=== PATIENT | female | born 1975 | race Caucasian/White ===

== ENCOUNTER 2016-05-24 08:53 | Emergency (ER) | payer MEDICARE, MEDICAID ==
--- NOTE | 2016-05-24 10:18 | ER Document Report ---
ED Psych Disorder / Suicide <GISELLE SHNE - Last Filed: 05/24/16 20:45> - General Mode of Arrival: Ambulatory Information source: Patient TRAVEL OUTSIDE OF THE [place] IN LAST 30 DAYS: No - HPI Patient complains to provider of: Other - Depression Onset: Other - see above Suicide Risk Factors: Depressed Associated symptoms: Other - see above <SELAM SMITH - Last Filed: 05/24/16 21:24> <MANUEL AGEE - Last Filed: 05/25/16 12:16> - General Chief Complaint: Psych Problem Stated Complaint: PSYCH EVAL Notes: 40 year old female presents to the ED complaining of depression and "weakness" to her upper torso. Patient becomes incredibly uncooperative when asked questions regarding the onset of these symptoms. Patient begins to lash out, screams, and verbally abuses the provider. Patient continually states that the providers foot is in her "personal space." A comprehensive HPI was unobtainable secondary to the patient's behavior. (SELAM SMITH) - Related Data Allergies/Adverse Reactions: acetaminophen [From Tylenol] Allergy (Severe, Verified 09/01/14 13:05) sick,sick,sick per patient banana [Banana] Allergy (Unknown, Verified 09/01/14 13:05) codeine [Codeine] Allergy (Unknown, Verified 09/01/14 13:05) pseudoephedrine [Pseudoephedrine] Allergy (Unknown, Verified 09/01/14 13:05) hotdogs Allergy (Uncoded 09/01/14 13:05) Past Medical History - General Information source: Patient - Social History Smoking Status: Unknown if Ever Smoked Family History: Reviewed & Not Pertinent Psychiatric Medical History: Reports: Hx Depression, Hx Schizophrenia Past Surgical History: Reports: Hx Section - Immunizations Hx Diphtheria, Pertussis, Tetanus Vaccination: Yes <SELAM SMITH - Last Filed: 05/24/16 21:24> Review of Systems <GISELLE SHEN - Last Filed: 05/24/16 20:45> - Review of Systems Constitutional: No symptoms reported EENT: No symptoms reported Cardiovascular: No symptoms reported Respiratory: No symptoms reported Gastrointestinal: No symptoms reported Genitourinary: No symptoms reported Female Genitourinary: No symptoms reported Musculoskeletal: No symptoms reported Skin: No symptoms reported Hematologic/Lymphatic: No symptoms reported Neurological/Psychological: See HPI, Depression, Weakness - bilateral upper torso <SELAM SMITH - Last Filed: 05/24/16 21:24> <MANUEL AGEE - Last Filed: 05/25/16 12:16> - Review of Systems Notes: A comprehensive ROS was unobtainable secondary to the patient's behavior. ( SELAM SMITH) Physical Exam - General General appearance: Alert, Other - verbally abusive, agitated, crying, cussing, and yelling In distress: None - HEENT Head: Normocephalic, Atraumatic Eyes: Normal Extraocular movements intact: Yes Pupils: PERRL - Respiratory Respiratory status: No respiratory distress - Cardiovascular Rhythm: Regular - Abdominal Inspection: Normal Distension: No distension Tenderness: Nontender - Back Back: Normal - Extremities General upper extremity: Normal inspection, Normal ROM General lower extremity: Normal inspection, Normal ROM - Neurological Neuro grossly intact: Yes Cognition: Normal Orientation: AAOx4 [place] Coma Scale Eye Opening: Spontaneous Estrada Coma Scale Verbal: Oriented [place] Coma Scale Motor: Obeys Commands Estrada Coma Scale Total: 15 Speech: Normal - Psychological Associated symptoms: Aggressive, Agitated, Tearful, Other - Unable to hold a train of thought. - Skin Skin Temperature: Warm Skin Moisture: Dry Skin Color: Normal <SMITHSELAM - Last Filed: 05/24/16 21:24> Course - Laboratory Result Diagrams: 05/24/16 09:50 05/24/16 09:50 <GISELLE SHEN - Last Filed: 05/24/16 20:45> - Laboratory Result Diagrams: 05/24/16 09:50 05/24/16 09:50 <SELAM SMITH - Last Filed: 05/24/16 21:24> - Laboratory Result Diagrams: 05/24/16 09:50 05/24/16 09:50 <MANUEL AGEE - Last Filed: 05/25/16 12:16> - Re-evaluation Re-evalutation: 05/24/16 20:43 I personally performed the services described in the documentation, reviewed and edited the documentation which was dictated to my scribe in my presence, and it accurately records my words and actions. She with an extensive psychiatric history yelling screaming, saying and verbally abusive towards staff to the point where we had to medicate her. Psychiatric evaluation history of schizophrenia. Gave her Geodon and Ativan which calmed her down for about 2-3 hours she woke up continued yelling screaming we called the psychiatrist financial sales representative about one hour ago 1944 and got recommendations for medication also gave her Ativan IM dose. She is positive for crack cocaine negative EKG changes. Will be admitted and see psychiatry in the morning. (GISELLE SHEN) - Vital Signs Vital signs: Temp Pulse Resp BP Pulse Ox 98.2 F 86 18 123/76 96 05/25/16 08:08 05/25/16 08:08 05/25/16 08:08 05/25/16 08:08 05/25/16 08:08 - Laboratory Laboratory results interpreted by me: 05/24/16 05/24/16 05/24/16 09:50 09:50 13:16 WBC 10.7 H Urine Protein 30 H Urine Ketones TRACE H Urine Nitrite POSITIVE H Ur Leukocyte Esterase MODERATE H Salicylates < 1.0 L Acetaminophen < 10 L - EKG Interpretation by Me Additional EKG results interpreted by me: 05/24/16 20:[address] segment elevation or depression (GISELLE SHEN) Critical Care Note - Critical Care Note Total time excluding time spent on procedures (mins): 45 <GISELLE SHEN - Last Filed: 05/24/16 20:45> Discharge <GISELLE SHEN - Last Filed: 05/24/16 20:45> <SELAM SMITH - Last Filed: 05/24/16 21:24> <MANUEL AGEE - Last Filed: 05/25/16 12:16> - Discharge Clinical Impression: Acute psychosis, Cocaine abuse UTI (urinary tract infection) Qualifiers: Urinary tract infection type: acute cystitis Hematuria presence: without hematuria Qualified Code(s): N30.00 - Acute cystitis without hematuria Condition: Stable Disposition: HOME, SELF-CARE Additional Instructions: Follow-up with the [facility]. Full course of your antibiotics for UTI. Do not use drugs. URINARY TRACT INFECTION: Your evaluation indicates that you have a urinary tract infection. This is due to germs growing in the bladder. This is a common problem. This infection usually responds quickly to antibiotics. Your antibiotic should be taken exactly as prescribed. Drink plenty of fluids -- three to four quarts a day. Occasionally, a bladder anesthetic will be prescribed to help stop the feeling of urgency until the antibiotic has a chance to clear the infection. This may cause your urine to be dark orange. Certain urine infections require a culture. If the doctor obtained a culture, the results will be back in two days. You should call to see if a change in treatment is needed. A repeat urinalysis after you finish treatment is often recommended. The physician will let you know if further testing is required. Call the doctor if you develop fever, chills, flank pain, inability to urinate, or blood in the urine. ANTIBIOTIC THERAPY: You have been given an antibiotic prescription. It's important that you take all the medication, unless instructed otherwise by your physician. Failure to complete the entire course can result in relapse of your condition. Common side effects of antibiotics include nausea, intestinal cramping, or diarrhea. Women may develop vaginal yeast infections, and babies can get yeast (thrush) in the mouth following the use of antibiotics. Contact your physician if you develop significant side effects from this medication. Allergy to this antibiotic can result in hives, wheezing, faintness, or itching. If symptoms of allergy occur, stop the medication and call the doctor. NITROFURANTOIN (MACRODANTIN, MACROBID): You have received a prescription for nitrofurantoin (Macrodantin). This antibiotic is used for urinary tract infections. Women who are or nursing should notify the physician before taking this medicine. If you have ever had a problem caused by this medication in the past, be sure the physician is aware of it. Common side effects of this medicine include nausea, vomiting, or decreased appetite. Notify your physician if these side effects become severe. Immediately stop this medicine and call the physician if you develop cough , shortness of breath, chest pain, weakness, jaundice (yellow color of the skin and whites of the eyes), or a skin rash. FOLLOW-UP CARE: If you have been referred to a physician for follow-up care, call the physician s office for an appointment as you were instructed or within the next two days. If you experience worsening or a significant change in your symptoms, notify the physician immediately or return to the Emergency Department at any time for re-evaluation. ACUTE ALCOHOL INTOXICATION and ALCOHOL ABUSE: Your evaluation revealed very high levels of alcohol. You can from drinking a large amount of alcohol rapidly! Further, there's the risk of falls , traffic accidents, and fights. A high portion (about 50 percent) of the serious injuries seen in hospital emergency rooms are caused by alcohol. Alcohol overdosage is usually due to an underlying emotional or psychiatric problem. You may benefit from counselling. If "binge" drinking is an ongoing problem for you, or if you drink ANY AMOUNT of alcohol EVERY day, you most likely have a tendency to alcoholism. You should avoid alcohol totally. We can refer you for treatment. Persons with alcohol problems are often also prone to other addictions -- you should discuss any use of medications or drugs with the doctor. You should be watched at home for the next several hours by someone who has not been drinking. Get extra fluids for the next 24 hours. Call the doctor if there is repeated vomiting, increasing headache, decreasing level of alertness, or any other worsening. CHRONIC ALCOHOLISM and ALCOHOL ABUSE: Your evaluation reveals evidence of chronic alcoholism, an addiction to alcohol. The tendency to alcoholism may be inherited. Chronic use of alcohol weakens muscles, causes fatty deposits in the liver , damages the stomach, makes you more prone to infections, and can cause defects in unborn children. In the long run, brain atrophy and cirrhosis of the liver result. You are also at greater risk for certain types of cancer, such as cancer of the mouth, throat, stomach, and liver. Counselling services are available to help you. In-hospital treatment programs often help. Support groups such as Alcoholics Anonymous can be very useful in beating this addiction. Your physician can make a referral for you. As alcoholics often are prone to other addictions, you should discuss your use of any other medications with the doctor. ALCOHOL WITHDRAWAL: Your symptoms are caused by alcohol withdrawal. After a period of frequent drinking, the brain and body are changed by the alcohol. When you quit or reduce your drinking, the nervous system becomes unstable. Withdrawal symptoms can start a few hours after your last drink, but sometimes don't begin until a couple of days later. Symptoms can include shakiness, sweating, insomnia, nausea , vomiting, fearfulness, hallucinations, and seizures. In addition to the acute effects of alcohol withdrawal, we often have to deal with the medical effects of alcoholism. These problems often include dehydration, stomach irritation, intestinal bleeding, low blood sugar, liver disease, and pancreas inflammation. Treatment for alcohol withdrawal includes mild sedatives, vitamins, and fluids. You need to be with someone who can help if symptoms become severe. Many patients can withdraw at home. Admission to the hospital or a detox facility may be necessary if withdrawal symptoms are severe and uncontrollable. Abstaining from alcohol is the only effective long-term treatment. If you start drinking again, you will not be able to control yourself after the first drink. Treatment programs are available. In addition, many alcoholics benefit from Alcoholics Anonymous or other support groups available through your counselor or episcopal tube machine operator helper. [employer]-ANON and ALA-TE[facility] are support groups for friends and family members of an alcoholic. Go to the emergency room if you develop persistent vomiting, severe abdominal pain, fever, shortness of breath, hallucinations, uncontrollable tremors, or seizures. COCAINE ABUSE: Cocaine causes many dangerous medical problems. Problems can occur even with "usual" amounts. Cocaine affects judgement, creating a sense of invulnerability. Cocaine users often make bad decisions that seem "great" at the time. Most cocaine users eventually will be hurt by bad job performance, damaged personal relations, crime, and unsafe sexual practices. Toxic effects of cocaine can include seizures, hallucinations, delusions, high blood pressure, heart damage, or sudden . There's always the risk of a "bad batch." But heart attacks, brain hemorrhages, or cardiac arrest can occur unpredictably even with "normal" use. Injection of cocaine is risky for abscesses, endocarditis (heart infection) , pneumonia, and AIDS. Withdrawal from cocaine often causes anxiety and drug cravings. Some users become paranoid and psychotic. Many treatment programs are available, but you must make the decision to quit. Medication can be prescribed to control the symptoms of cocaine toxicity (beta blockers or benzodiazepines). Withdrawal symptoms may require tranquilizers. NARCOTIC / OPIOD ABUSE: Narcotics and opiods are pain-relieving drugs that are often abused. They are addicting. Narcotics cause euphoria, but it often takes increasing amounts to "feel good" and avoid withdrawal symptoms. Overdose of narcotics causes small pupils, coma, and decreased breathing. It's a common cause of . Purity of street narcotics is unpredictable. Injection of narcotics is risky for abscesses, endocarditis (heart infection), pneumonia, and AIDS. Withdrawal from narcotics causes goose bumps, watery mouth, sweating, nasal congestion, muscle aches, abdominal cramps, vomiting, and diarrhea. There 's often restlessness and confusion. Treatment programs are available, but you must make the decision to quit. Medication (such as clonidine) can be prescribed to control the symptoms of withdrawal. AMPHETAMINE / METHAMPHETAMINE ABUSE: Amphetamines are addicting stimulants. Amphetamines overstimulate the nervous system and give a false feeling of power and mastery. These drugs may be obtained as prescription pills for weight loss, narcolepsy, or attention- deficit disorder. More often they're bought as an illegal street drug, methamphetamine (crank, crystal, speed). Using amphetamines repeatedly can lead to serious medical problems including malnutrition, severe depression, and paranoia. It can take increasing amounts to feel good. Eventually, there will be a "burn out." When you go off amphetamines there is a period of depression that may last for weeks or even months. High doses of amphetamines can cause seizures, confusion, hallucinations, delusions, high blood pressure, muscle damage, heart damage, or sudden . Many times these deadly complications occur even with "normal" doses. Injection of amphetamines is risky for developing abscesses, endocarditis ( heart infection), pneumonia, and AIDS. Withdrawal from amphetamines often causes anxiety, depression, and drug cravings. Some users become paranoid and psychotic. There may be cramps, nausea , and vomiting. Many treatment programs are available, but you must make the decision to quit. Medication can be prescribed to control the symptoms of amphetamine toxicity (beta blockers or benzodiazepines). Withdrawal symptoms may require tranquilizers. OVERDOSE / INGESTION: You have taken more medication than you should have. After your evaluation and care, it is felt that your overdose is not likely to be harmful or of any significant consequences to you and you are being discharged. In the future, you should be careful not to take more medications than what is prescribed for you. Although your overdose does not seem to be of any danger to you at this time, if you develop any unusual or unexpected symptoms after your discharge, you should return to the Emergency Department immediately for re-evaluation. INSTRUCTIONS FOR HOME CARE FOLLOWING DRUG OVERDOSAGE: The doctor feels it's safe for you to go home. You will need to be observed. If charcoal and a laxative was given to you, expect some loose black stools soon. Take no medications unless approved by a physician, including alcohol. If drowsy, lie on your stomach or side for sleeping to avoid aspiration if vomiting occurs. Take only liquids by mouth until there is no more nausea. FOR THE OBSERVER: Observe the patient for the next 24 hours and call or go to the hospital if any of the following are noted: prolonged or repeated vomiting, difficulty in arousing, convulsions (seizures or fits), fever, persistent cough, breathing that is too slow or too rapid, or confused or bizarre behavior. If a counselling visit has been arranged, make sure the patient attends. Call the physician or poison control if you have questions. FOLLOW-UP CARE: If you have been referred to a physician for follow-up care, call the physician s office for an appointment as you were instructed or within the next two days. If you experience worsening or a significant change in your symptoms, notify the physician immediately or return to the Emergency Department at any time for re-evaluation. Prescriptions: Benztropine Mesylate [Cogentin 1 mg Tablet] 1 tab PO QHS #7 tab Olanzapine [Zyprexa 5 mg Tablet] 5 mg PO QHS #7 tablet Divalproex Sodium [Depakote ER 500 mg Tab.sr] 500 mg PO Q12 #14 tab.sr.24h Nitrofurantoin/Nitrofuran Mac [Macrobid 100 mg Capsule] 1 tab PO BID #10 capsule Scribe Documentation - Scribe Written by Zhao:: Zhao Henriquez, 05/24/2016 1332 acting as scribe for :: Cruz <SELAM SMITH - Last Filed: 05/24/16 21:24>
[2016-05-24] MEDS ORDERED: LORAZEPAM INJ 2 MG/1 ML VIAL ONE ×2 (10:19→20:00)
[2016-05-24 10:22] LABS: ABSOLUTE BASOPHILS # (AUTO) 0.1 10^3/uL (0.0-0.2); ABSOLUTE EOSINOPHILS # (AUTO) 0.4 10^3/uL (0.0-0.6); ABSOLUTE LYMPHOCYTES (AUTO) 1.8 10^3/uL (0.5-4.7); ABSOLUTE MONOCYTES (AUTO) 0.9 10^3/uL (0.1-1.4); ABSOLUTE NEUT (AUTO) 7.5 10^3/uL (1.7-8.2); BASOPHILS % (AUTO) 0.5 % (0-2); EOSINOPHILS % (AUTO) 3.9 % (0-6); HEMATOCRIT 43.2 % (36.0-47.0); HEMOGLOBIN 14.6 g/dL (12.0-15.5); HGB HCT DIFFERENCE 0.6; LYMPHOCYTES % (AUTO) 17.1 % (13-45); MEAN CORPUSCULAR HEMOGLOBIN 30.1 pg (27.0-33.4); MEAN CORPUSCULAR HGB CONC 33.8 g/dL (32.0-36.0); MEAN CORPUSCULAR VOLUME 89 fl (80-97); MONOCYTES % (AUTO) 8.6 % (3-13); RED BLOOD COUNT 4.85 10^6/uL (3.72-5.28); RED CELL DISTRIBUTION WIDTH 12.9 % (11.5-14.0); SEGMENTED NEUTROPHILS % (AUTO) 69.9 % (42-78); WHITE BLOOD COUNT 10.7 10^3/uL (4.0-10.5)
[2016-05-24 10:33] LABS: BLOOD UREA NITROGEN 16 mg/dL (7-20); CREATININE RESULT 0.83 mg/dL (0.52-1.25); GLUCOSE 104 mg/dL (75-110)
[2016-05-24 10:34] LABS: ALANINE AMINOTRANSFERASE 25 U/L (9-52); ALBUMIN 4.3 g/dL (3.5-5.0); ALCOHOL < 10 mg/dL (NONE DETECTED); ALKALINE PHOSPHATASE 72 U/L (38-126); ANION GAP 12 (5-19); ASPARTATE AMINO TRANSFERASE 20 U/L (14-36); BILIRUBIN,TOTAL 0.7 mg/dL (0.2-1.3); CARBON DIOXIDE 27 mmol/L (22-30); CHLORIDE 104 mmol/L (98-107); POTASSIUM 4.6 mmol/L (3.6-5.0); SODIUM 142.9 mmol/L (137-145)
[2016-05-24] MEDS ORDERED: ZIPRASIDONE MESYLATE INJ/PF 20 MG SDV IM ONE (11:00)
[2016-05-24 13:50] LABS: APPEARANCE,URINE CLOUDY; BILIRUBIN,URINE NEGATIVE (NEGATIVE); GLUCOSE, URINE NEGATIVE (NEGATIVE); KETONES,URINE TRACE mg/dL (NEGATIVE); LEUKOCYTE ESTERASE,URINE MODERATE (NEGATIVE); NITRITE,URINE POSITIVE (NEGATIVE); PROTEIN,URINE 30 mg/dL (NEGATIVE); UROBILINOGEN,URINE NEGATIVE mg/dL (<2.0)
[2016-05-24 14:02] LABS: URINE BARBITURATES SCREEN NEGATIVE; URINE METHADONE SCREEN NEGATIVE; URINE OPIATES LOW NEGATIVE; URINE PHENCYCLIDINE SCREEN NEGATIVE
[2016-05-24] MEDS ORDERED: ONDANSETRON 4 MG TAB.RAPDIS PO ONE (16:34)
[2016-05-24] MEDS ORDERED: NITROFURANTOIN MONOHYD/M-CRYST 100 MG CAPSULE PO ONE (16:35)
[2016-05-24] MEDS ORDERED: LORAZEPAM INJ 2 MG/1 ML VIAL IM ONE (19:58)
[2016-05-24] MEDS ORDERED: BUSPIRONE HCL 10 MG TABLET PO ONE (20:25)
[2016-05-24] MEDS ORDERED: OLANZAPINE 5 MG TABLET PO PRN (20:26)
[2016-05-24] MEDS ORDERED: OLANZAPINE 5 MG TABLET PO SCH (22:00)
[2016-05-24] MEDS ORDERED: BENZTROPINE MESYLATE 1 MG TABLET PO SCH (22:00)
--- NOTE | 2016-05-25 07:21 | PSYCHOLOGICAL NOTE ---
Psych Note - Psych Note Psych Note: Patient presented to [facility] ED with complaint depression and needing a psych evaluation. Patient refused assessment and vital signs with EMS. Upon arrival, patient is tearful and states "I need to go to a 30 [address] [facility] place". Patient is unable to engage in evaluation at this time because she is sleeping. Patient received medication to calm her. 1430 Patient states she is depressed and needs an evaluation because her stomach hurts. Patient is tearfully and yelling because of the pain. Patient states that she needs help with her stomach and that she has been nauseas for 3 days. Patient states she is not suicidal or homicidal she is depressed and in pain. Patient repeated asks for medication to assist with her pain and nausea. Patient is difficult to engage as she just yells and says everyone is being mean to her. She does not answer direct questions easily and quickly reverts to her alleged pain. Patient was alert and oriented. Mood was irritable with tearful affect. She denied SI/HI. She did not appear to be responding to internal stimuli. Thought processes were organized. Thought content is focused on patient's reported pain. Conversational speech was slow in rate and yelling. Clinician asked when the last time the patient used cocaine and she stated she does not use cocaine. When clinician asked when the last time she used crack, she stated she used last weekend. Patient then had to leave the room to "throw up" and then make a call. Patient gave verbal consent to contact her child's father, Mayur Rinaldi ). She is not taking her medication. He continued to disclose that she has been taking off ability but does not know why. He states she is much better when she is on that. He continued to disclose that when she is on her medication, you can't even tell she has schizophrenia. 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 She denied SI/HI and does not appear to be in a psychosis. She is not responding to internal stimuli, can follow commands with minor direction, and can follow conversation. It is unclear at this time that patient's chief complaint, patient is unwilling or unable to verbalize needs other then she is depressed and in physical pain. Patient is yelling for medication and verbally abusive to staff. Patient's behavior would support collateral's concerns that she has not been taking her medication; however, it is believed by this clinician that the patient is behavioral and can control her presentation. Patient is recommended for overnight observation to assist with medications and then follow up with her outpatient provider in the morning. Dr. Restrepo was consulted on the care and management of this patient. Attending physician is in agreement with recommendations and disposition.
--- NOTE | 2016-05-25 09:34 | ER Document Report ---
Doctor's Note Notes: 05/25/16 09:30 Patient seen and evaluated at the bedside. Medically stable. She took her psychiatric medications yesterday. Evaluated today with no active signs of withdrawal. No other complaints at this time. Awaiting psych recs. Most likely discharge today. 05/25/16 13:15 Psych recommends discharge and outpatient follow-up at [facility]. Patient is not suicidal or homicidal and is not actively psychotic. IVC rescinded. Given strict return precautions. Also counseled on drug abuse.
--- NOTE | 2016-05-25 09:40 | PSYCHOLOGICAL NOTE ---
Psych Note - Psych Note Psych Note: Patient presented to [facility] ED with complaint depression and needing a psych evaluation. Patient refused assessment and vital signs with EMS. Upon arrival, patient is tearful and states "I need to go to a [address] Patient disclosed that she thinks her stomach has been hurting because of her UTI. She continued to disclose that she does have outpatient services through [facility] and should be having an appointment soon. She's disclosed that her medications were changed and believes they were not working. Patient is alert and orientated to person place time and circumstance. Patient' s mood is euthymic with congruent affect. Patient denies suicidal and homicidal ideation. patient denies auditory and visual hallucinations; no delusions are noted. Thought process is logical organized and linear. Conversational speech was soft but still within normal rate tone and prosody. Eye contact was well maintained. Intellectual abilities appear to be within average range. Attention and concentration are good. Insight, judgment, impulse control are fair. 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 Patient denies suicidal/homicidal ideation. Patient's presentation has greatly improved with compliance and calm behavior. Patient is recommended to follow-up with outpatient services through home mental health provider [facility]. Dr. Restrepo was consulted on the care and management of this patient. Attending physician is in agreement with recommendations and disposition.
[2016-05-25] MEDS ORDERED: DIVALPROEX SODIUM 500 MG TAB.SR.24H PO SCH (10:00)
--- NOTE | 2016-05-25 11:15 | EKG REPORT ---
SEVERITY:- ABNORMAL ECG - SINUS RHYTHM RBBB AND LAFB : Confirmed by: Desire To 25-May-2016 11:14:16
[2016-05-25 12:29] VITALS: BP 118/76
== END 2016-05-25 12:31 | disposition home or self-care (01) ==
LOC: ER 08:53
DX: F20.9 Schizophrenia, unspecified (principal); F14.10 Cocaine abuse, uncomplicated; F32.9 Major depressive disorder, single episode, unspecified; N30.00 Acute cystitis without hematuria; R53.1 Weakness; Z88.8 Allergy status to other drugs, medicaments and biological substances; Z91.018 Allergy to other foods
CPT/HCPCS: 93005; 99291; 96372; 96374; 36415; 87086; 80307 ×4; 85025; 87088; 80053; 81001; 87186; 93010; A9270 ×5; J2060; J3486; S0119

== ENCOUNTER 2016-06-18 15:27 | Emergency (ER) | payer MEDICARE ==
[2016-06-18] MEDS ORDERED: ASPIRIN 81 MG TABLET, CHEWABLE ONE (16:08)
[2016-06-18] MEDS ORDERED: OLANZAPINE INJ/PF 10 MG SDV IM ONE (16:34)
[2016-06-18] MEDS ORDERED: DIVALPROEX SODIUM 500 MG TAB.SR.24H PO ONE (16:35)
[2016-06-18] MEDS ORDERED: ARIPIPRAZOLE 5 MG TABLET PO ONE (16:35)
[2016-06-18] MEDS ORDERED: BENZTROPINE MESYLATE 1 MG TABLET PO ONE (16:35)
[2016-06-18 16:41] LABS: ABSOLUTE EOSINOPHILS # (AUTO) 0.4 10^3/uL (0.0-0.6); ABSOLUTE LYMPHOCYTES (AUTO) 2.3 10^3/uL (0.5-4.7); ABSOLUTE MONOCYTES (AUTO) 0.8 10^3/uL (0.1-1.4); ABSOLUTE NEUT (AUTO) 6.1 10^3/uL (1.7-8.2); BASOPHILS % (AUTO) 0.3 % (0-2); HEMATOCRIT 42.4 % (36.0-47.0); HEMOGLOBIN 14.4 g/dL (12.0-15.5); HGB HCT DIFFERENCE 0.8; LYMPHOCYTES % (AUTO) 24.1 % (13-45); MEAN CORPUSCULAR HEMOGLOBIN 30.1 pg (27.0-33.4); MEAN CORPUSCULAR HGB CONC 33.9 g/dL (32.0-36.0); MEAN CORPUSCULAR VOLUME 89 fl (80-97); MONOCYTES % (AUTO) 8.4 % (3-13); RED BLOOD COUNT 4.78 10^6/uL (3.72-5.28); RED CELL DISTRIBUTION WIDTH 12.9 % (11.5-14.0); SEGMENTED NEUTROPHILS % (AUTO) 63.2 % (42-78); WHITE BLOOD COUNT 9.6 10^3/uL (4.0-10.5)
[2016-06-18 16:58] LABS: ALANINE AMINOTRANSFERASE 26 U/L (9-52); ALBUMIN 4.3 g/dL (3.5-5.0); ALKALINE PHOSPHATASE 72 U/L (38-126); ANION GAP 14 (5-19); ASPARTATE AMINO TRANSFERASE 17 U/L (14-36); BILIRUBIN,DIRECT 0.3 mg/dL (0.0-0.4); BILIRUBIN,TOTAL 0.8 mg/dL (0.2-1.3); BLOOD UREA NITROGEN 19 mg/dL (7-20); CALCIUM 9.7 mg/dL (8.4-10.2); CARBON DIOXIDE 27 mmol/L (22-30); CHLORIDE 106 mmol/L (98-107); CREATINE KINASE 69 U/L (30-135); CREATININE RESULT 1.16 mg/dL (0.52-1.25); GLUCOSE 119 mg/dL (75-110); POTASSIUM 4.7 mmol/L (3.6-5.0); SODIUM 146.5 mmol/L (137-145); TOTAL PROTEIN 7.7 g/dL (6.3-8.2)
[2016-06-18 17:10] LABS: CREATINE KINASE MB 0.29 ng/mL (<4.55)
[2016-06-18 17:11] LABS: TROPONIN I < 0.012 ng/mL
--- NOTE | 2016-06-18 17:35 | ER Document Report ---
ED Psych Disorder / Suicide - General Chief Complaint: Psych Problem Stated Complaint: PSYCH EVAL+substance abuse, hx of Information source: Patient, [facility] Records Cannot obtain history due to: Uncooperative TRAVEL OUTSIDE OF THE [place] IN LAST 30 DAYS: No - HPI Patient complains to provider of: Agitated Onset: Just prior to arrival Onset was: Sudden Suicide Risk Factors: Bipolar, Depressed. No: Other mental health dx. - Borderline Personality Traits Situational problems related to: Other Normal mood: No Associated symptoms: Anxious, Irritable, Labile, Restlessness, Uncooperative, Other - excessively crying, but stops on command Similar symptoms previously: Yes Recently seen / treated by doctor: No - patient states she has not been on her psychiatric medications Notes: Patient presents to [facility] ED via a friend/family member and states she needs assistance managing her depression and psychiatric needs. Patient does have a history presenting to this department and is reportedly diagnosed with Schizophrenia and Cocaine Use Disorder. I attempted to evaluate this patient at which time I entered the room and she was laying on her bed moaning and crying. Patient states she is having chest pains. This clinician talked with the nurse vitals and EKG were all normal no reported concerns. Encourage patient to take a deep breath and set up. Patient repeatedly stated she couldn' t breathe and that she needed help because of her chest pains. Patient again encouraged to sit up and take a deep breath; however, patient stopped stared at this clinician and stated "shut up you are not the boss of me." Redirected patient that she was able to calm herself down enough to make that statement and appears as though she can control her behavioral presentation. Patient continued to per rate this clinician, called me a "snob" and told me to get out of her room. A careful review of patient's medical record indicates dating back to the year 2012 similar such behavioral presentations, e.g. yelling, cursing, crying but stopping on command. Patient did not mention suicidal ideations upon her arrival. Patient does not appear to be responding to internal stimuli. Patient is alert and oriented. Mood is irritable and labile with congruent affect. Patient denied suicidal/homicidal ideations during initial evaluation by nursing and M.D. Patient does not appear to be responding to internal stimuli nor is it documented within her medical history. Thought processes were guarded and goal oriented towards remaining in the ED, as evidenced by refusing to engage in conversation. Conversational speech was labile for prosody. Intellectual abilities were estimated within average range. Attention and focus were fair. Insight, judgment, impulse control were poor. 292.9 (F14.99) Unspecified Cocaine Related Disorder Schizophrenia by History R/O 295.70 (F25.0) Schizoaffective Disorder, Bipolar Type Impression/Plan: Patient is considered psychiatrically cleared for discharge. Patient presents with a significant behavioral component considered cured at medications and/or remaining in the ER. Patient was uncooperative and did not engage in conversation; however, does not meet criteria for involuntary commitment as she denied SI/HI upon arrival. Patient has a rather lengthy history of behavioral outbursts and presentations and this department to also include substance abuse (cocaine). Patient is recommended to follow-up with outpatient services through home mental health provider [facility]. Dr. Restrepo was consulted on the care and management of this patient. - Related Data Allergies/Adverse Reactions: acetaminophen [From Tylenol] Allergy (Severe, Verified 09/01/14 13:05) sick,sick,sick per patient banana [Banana] Allergy (Unknown, Verified 09/01/14 13:05) codeine [Codeine] Allergy (Unknown, Verified 09/01/14 13:05) pseudoephedrine [Pseudoephedrine] Allergy (Unknown, Verified 09/01/14 13:05) hotdogs Allergy (Uncoded 09/01/14 13:05) Past Medical History - General Information source: Patient - Social History Smoking Status: Current Every Day Smoker Family History: Reviewed & Not Pertinent Psychiatric Medical History: Reports: Hx Depression, Hx Schizophrenia Past Surgical History: Reports: Hx Section - Immunizations Hx Diphtheria, Pertussis, Tetanus Vaccination: Yes Course - Laboratory Result Diagrams: 06/18/16 16:25 06/18/16 16:25 Laboratory results interpreted by me: 06/18/16 16:25 Sodium 146.5 H Est GFR (Non-Af Amer) 52 L Glucose 119 H Discharge - Discharge Condition: Good Disposition: HOME, SELF-CARE Instructions: Schizophrenia ([facility]), Cocaine Abuse ([facility]) Additional Instructions: Please follow with her psychiatric provider to pursue continued medication management. Please consider engaging in outpatient therapy to assist you in managing her stressors. He had been provided with community resources to include contact information for mobile crisis. Those numbers are [phone] or . These mobile crisis team's are available to you .
[2016-06-18 17:44] VITALS: BP 129/75
[2016-06-18 18:14] LABS: APPEARANCE,URINE TURBID; BILIRUBIN,URINE NEGATIVE (NEGATIVE); GLUCOSE, URINE NEGATIVE (NEGATIVE); KETONES,URINE TRACE mg/dL (NEGATIVE); LEUKOCYTE ESTERASE,URINE NEGATIVE (NEGATIVE); NITRITE,URINE NEGATIVE (NEGATIVE); PROTEIN,URINE 30 mg/dL (NEGATIVE); URINE SPECIFIC GRAVITY 1.029; UROBILINOGEN,URINE NEGATIVE mg/dL (<2.0)
[2016-06-18 18:29] LABS: URINE BARBITURATES SCREEN NEGATIVE; URINE METHADONE SCREEN NEGATIVE; URINE OPIATES LOW NEGATIVE; URINE PHENCYCLIDINE SCREEN NEGATIVE
--- NOTE | 2016-06-18 19:21 | ER Document Report ---
ED General - General Chief Complaint: Psych Problem Stated Complaint: PSYCH EVAL Time seen by provider: 19:13 Mode of Arrival: Ambulatory Information source: Patient Notes: 40-year-old female with a history of schizophrenia, presents to the emergency room upset that she ran out of her medicines. Patient also has been having some sharp chest pain she's been concerned about that. TRAVEL OUTSIDE OF THE [place] IN LAST 30 DAYS: No - HPI Onset: Last week Onset/Duration: Gradual Quality of pain: Sharp Severity: Moderate Pain Level: 2 Associated symptoms: denies: Nonproductive cough, Productive cough, Fever, Shortness of breath Exacerbated by: Movement Relieved by: Remaining still Similar symptoms previously: No Recently seen / treated by doctor: No - Related Data Allergies/Adverse Reactions: acetaminophen [From Tylenol] Allergy (Severe, Verified 09/01/14 13:05) sick,sick,sick per patient banana [Banana] Allergy (Unknown, Verified 09/01/14 13:05) codeine [Codeine] Allergy (Unknown, Verified 09/01/14 13:05) pseudoephedrine [Pseudoephedrine] Allergy (Unknown, Verified 09/01/14 13:05) hotdogs Allergy (Uncoded 09/01/14 13:05) Past Medical History - General Information source: Patient - Social History Smoking Status: Current Every Day Smoker Chew tobacco use (# tins/day): No Frequency of alcohol use: None Drug Abuse: Other Lives with: Spouse/Significant other Family History: Reviewed & Not Pertinent Patient has suicidal ideation: No Patient has homicidal ideation: No - Past Medical History Cardiac Medical History: Reports: None Pulmonary Medical History: Reports: None EENT Medical History: Reports: None Neurological Medical History: Reports: None Endocrine Medical History: Reports: None Renal/ Medical History: Reports: None Malignancy Medical History: Reports: None GI Medical History: Reports: None Musculoskeltal Medical History: Reports None Skin Medical History: Reports None Psychiatric Medical History: Reports: Hx Depression, Hx Schizophrenia Past Surgical History: Reports: Hx Section - Immunizations Hx Diphtheria, Pertussis, Tetanus Vaccination: Yes Review of Systems - Review of Systems Notes: Review of systems: Constitutional: Denies fever, chills. EENT: Denies ear pain, sinus tenderness, throat pain, throat swelling. Cardiovascular: Denies chest pain, palpitations, dyspnea or edema. Respiratory: Denies wheezing, cough, hemoptysis. Abdomen: Denies abdominal pain, nausea, vomiting, diarrhea. Denies BRBPR or melena. Genitourinary: Denies dysuria, pyuria, hematuria, flank pain. Musculoskeletal: See H&P Neurologic: Denies headache, photophobia, neck stiffness, weakness. Denies loss of bowel or bladder function. Denies saddle anesthesia. Skin: Denies rash, lesions. Physical Exam - Vital signs Vitals: Temp Pulse Resp BP Pulse Ox 98.5 F 95 22 H 129/75 H 97 06/18/16 15:36 06/18/16 15:36 06/18/16 15:36 06/18/16 15:36 06/18/16 15:36 Notes: Physical exam: GENERAL: HEAD: Atraumatic, normocephalic. EYES: Pupils equal round and reactive to light, extraocular movements intact, sclera anicteric, conjunctiva are normal. ENT: TMs normal, nares patent, oropharynx clear without exudates. Moist mucous membranes. NECK: Normal range of motion, supple without lymphadenopathy or JVD. LUNGS: Breath sounds clear to auscultation bilaterally and equal. No wheezes rales or rhonchi. HEART: Regular rate and rhythm without murmurs, rubs or gallops. S wall: Patient does have tenderness to the right chest wall with palpation and movement of the torso. ABDOMEN: Soft, normoactive bowel sounds. No tenderness to palpation. No guarding, no rebound. No masses appreciated. EXTREMITIES: Normal range of motion, no pitting or edema. No clubbing or cyanosis. NEUROLOGICAL: Cranial nerves II through XII grossly intact. Normal speech, normal gait. PSYCH: Normal mood, normal affect. SKIN: Warm, Dry, normal turgor, no rashes or lesions noted. Course - Re-evaluation Re-evalutation: 06/18/16 19:14 Note: The patient's chest pain is sharp and positional and worsened with changes in torso movement and palpation. The patient's EKG is normal sinus rhythm with a right bundle branch block which is old. There are no acute ST-T wave elevations. First set of cardiac enzymes were negative. The story seems very unrealistic for primary coronary artery disease. Her chest x-ray was clear. She has refused any further blood tests or an IV for any type of CT imaging of her lungs. Her legs are clear and her oxygen saturation is good side believe the chances of her having an emboli are low. Her workup is limited because she is not willing to proceed any further. I did have her evaluated by psychiatry and will be giving her prescriptions and she will be following up with her psychiatric provider. - Vital Signs Vital signs: Temp Pulse Resp BP Pulse Ox 98.5 F 95 22 H 129/75 H 97 06/18/16 15:36 06/18/16 15:36 06/18/16 15:36 06/18/16 15:36 06/18/16 15:36 - Laboratory Result Diagrams: 06/18/16 16:25 06/18/16 16:25 Laboratory results interpreted by me: 06/18/16 06/18/16 15:54 16:25 Sodium 146.5 H Est GFR (Non-Af Amer) 52 L Glucose 119 H Urine Protein 30 H Urine Ketones TRACE H - Diagnostic Test Radiology reviewed: Image reviewed, Reports reviewed - Chest x-ray shows no infiltrates or effusions - EKG Interpretation by Me Rate: Normal Rhythm: NSR - EKG shows normal sinus rhythm with a ventricular rate of 81, there is a right bundle branch block which is unchanged from previous EKG. Discharge - Discharge Clinical Impression: mood disorder NOS, chest wall pain. Condition: Good Disposition: HOME, SELF-CARE Instructions: Cocaine Abuse ([facility]), Schizophrenia ([facility]) Additional Instructions: Please follow with her psychiatric provider to pursue continued medication management. Please consider engaging in outpatient therapy to assist you in managing her stressors. He had been provided with community resources to include contact information for mobile crisis. Those numbers are [phone] or . These mobile crisis team's are available to you . Prescriptions: Aripiprazole [Abilify 15 mg Tablet] 15 mg PO DAILY #14 tablet Benztropine Mesylate [Cogentin 1 mg Tablet] 1 tab PO DAILY #14 tab Divalproex Sodium [Depakote ER 500 mg Tab.sr] 500 mg PO Q12 #30 tab.sr.24h Olanzapine [Zyprexa 5 mg Tablet] 5 mg PO Q12 #14 tablet
--- NOTE | 2016-06-18 20:47 | EKG REPORT ---
SEVERITY:- ABNORMAL ECG - SINUS RHYTHM RBBB AND LAFB PROBABLE LEFT VENTRICULAR HYPERTROPHY : Confirmed by: Desire To 18-Jun-2016 20:47:00
== END 2016-06-18 19:41 | disposition home or self-care (01) ==
LOC: ER 15:27
DX: F39 Unspecified mood [affective] disorder (principal); F20.9 Schizophrenia, unspecified; R07.89 Other chest pain; I45.10 Unspecified right bundle-branch block; F17.200 Nicotine dependence, unspecified, uncomplicated; Z88.6 Allergy status to analgesic agent; Z91.013 Allergy to seafood; Z88.5 Allergy status to narcotic agent; Z88.8 Allergy status to other drugs, medicaments and biological substances
CPT/HCPCS: 93005; 99284; 96372; 36415; 82553; 82550; 85025; 80053; 81001; 84484; 80307; 71010; 93010; A9270 ×4

== ENCOUNTER 2016-06-22 05:04 | Emergency (ER) | payer MEDICARE ==
[2016-06-22 05:42] LABS: ABSOLUTE BASOPHILS # (AUTO) 0.1 10^3/uL (0.0-0.2); ABSOLUTE EOSINOPHILS # (AUTO) 0.5 10^3/uL (0.0-0.6); ABSOLUTE LYMPHOCYTES (AUTO) 1.5 10^3/uL (0.5-4.7); ABSOLUTE MONOCYTES (AUTO) 1.2 10^3/uL (0.1-1.4); ABSOLUTE NEUT (AUTO) 8.6 10^3/uL (1.7-8.2); BASOPHILS % (AUTO) 0.5 % (0-2); EOSINOPHILS % (AUTO) 4.6 % (0-6); HEMATOCRIT 42.1 % (36.0-47.0); HEMOGLOBIN 14.1 g/dL (12.0-15.5); HGB HCT DIFFERENCE 0.2; LYMPHOCYTES % (AUTO) 12.7 % (13-45); MEAN CORPUSCULAR HEMOGLOBIN 29.6 pg (27.0-33.4); MEAN CORPUSCULAR HGB CONC 33.4 g/dL (32.0-36.0); MEAN CORPUSCULAR VOLUME 89 fl (80-97); MONOCYTES % (AUTO) 9.9 % (3-13); RED BLOOD COUNT 4.75 10^6/uL (3.72-5.28); RED CELL DISTRIBUTION WIDTH 12.7 % (11.5-14.0); SEGMENTED NEUTROPHILS % (AUTO) 72.3 % (42-78); WHITE BLOOD COUNT 11.8 10^3/uL (4.0-10.5)
[2016-06-22 05:46] LABS: AMORPHOUS SEDIMENT,URINE TRACE /HPF; APPEARANCE,URINE CLOUDY; BILIRUBIN,URINE NEGATIVE (NEGATIVE); GLUCOSE, URINE NEGATIVE (NEGATIVE); KETONES,URINE NEGATIVE (NEGATIVE); LEUKOCYTE ESTERASE,URINE TRACE (NEGATIVE); NITRITE,URINE NEGATIVE (NEGATIVE); PROTEIN,URINE NEGATIVE (NEGATIVE); URINE SPECIFIC GRAVITY 1.018; UROBILINOGEN,URINE NEGATIVE mg/dL (<2.0)
[2016-06-22 06:03] LABS: ALANINE AMINOTRANSFERASE 23 U/L (9-52); ALBUMIN 4.1 g/dL (3.5-5.0); ALKALINE PHOSPHATASE 75 U/L (38-126); ANION GAP 11 (5-19); ASPARTATE AMINO TRANSFERASE 12 U/L (14-36); BILIRUBIN,DIRECT 0.3 mg/dL (0.0-0.4); BILIRUBIN,TOTAL 0.6 mg/dL (0.2-1.3); BLOOD UREA NITROGEN 9 mg/dL (7-20); CALCIUM 9.4 mg/dL (8.4-10.2); CARBON DIOXIDE 26 mmol/L (22-30); CHLORIDE 105 mmol/L (98-107); CREATININE RESULT 0.72 mg/dL (0.52-1.25); GLUCOSE 101 mg/dL (75-110); POTASSIUM 4.2 mmol/L (3.6-5.0); SODIUM 142.4 mmol/L (137-145); TOTAL PROTEIN 7.3 g/dL (6.3-8.2)
[2016-06-22] MEDS ORDERED: ZIPRASIDONE MESYLATE INJ/PF 20 MG SDV IM ONE (06:42)
--- NOTE | 2016-06-22 06:49 | ER Document Report ---
Addendum entered and electronically signed by AVIS GLORIA 06/22/16 14:40: Physical Exam - Vital signs Vitals: Temp Pulse Resp BP Pulse Ox 98.7 F 79 17 122/75 98 06/22/16 05:10 06/22/16 05:10 06/22/16 05:10 06/22/16 05:10 06/22/16 05:10 - Notes Notes: Physical Exam: General: Alert. HEENT: Normocephalic. Atraumatic. PERRL. Extraocular movements intact. Oropharynx clear. Neck: Supple. Respiratory: No respiratory distress. Pain with light palpation of right chest wall and right breast Abdominal: Obese. No distension. Extremities: Pain with light touch of right upper extremity Neurological: Normal cognition. AAOx4. Normal speech. Psychological: Angry, agitated, anxious, tearful. Skin: Warm. Dry. Normal color. Original Note: ED Psych Disorder / Suicide <MANUEL AGEE - Last Filed: 06/22/16 09:22> - General Mode of Arrival: Medic Information source: Patient TRAVEL OUTSIDE OF THE [place] IN LAST 30 DAYS: No - HPI Patient complains to provider of: Bizarre behavior, Other - depression Onset: Other Severity: None Pain Level: Denies Situational problems related to: Daughter, Significant other Normal mood: No Associated symptoms: Depressed Similar symptoms previously: Yes Recently seen / treated by doctor: Yes <AVIS GLORIA - Last Filed: 06/22/16 14:39> <NILDA STEVENS - Last Filed: 06/22/16 17:18> - General Chief Complaint: Psych Problem Stated Complaint: PSYCH EVALUATION Notes: Patient is a 40-year-old female with documented psychiatric history including schizophrenia and depression that presents to the emergency department today with complaints of "needing psychiatric help". Patient states that she has had recent at home stressors including losing her daughter to DSS and her boyfriend leaving her. Patient is acting somewhat bizarre, crying, and also complaining of right-sided arm, back, and chest pain stating "I am having a heart attack". Patient's pain is reproducible with movement of the right upper extremity. Patient denies any trauma. (AVIS GLORIA) - Related Data Allergies/Adverse Reactions: acetaminophen [From Tylenol] Allergy (Severe, Verified 06/22/16 05:11) sick,sick,sick per patient banana [Banana] Allergy (Unknown, Verified 06/22/16 05:11) codeine [Codeine] Allergy (Unknown, Verified 06/22/16 05:11) pseudoephedrine [Pseudoephedrine] Allergy (Unknown, Verified 06/22/16 05:11) shrimp Allergy (Verified 06/22/16 05:11) VOMITING hotdogs Allergy (Uncoded 06/22/16 05:11) Past Medical History - General Information source: Patient, [facility] Records - Social History Smoking Status: Unknown if Ever Smoked Cigarette use (# per day): No Frequency of alcohol use: None Drug Abuse: None Lives with: Alone Family History: Reviewed & Not Pertinent Patient has suicidal ideation: Yes Patient has homicidal ideation: Yes Psychiatric Medical History: Reports: Hx Depression, Hx Schizophrenia Past Surgical History: Reports: Hx Section - Immunizations Hx Diphtheria, Pertussis, Tetanus Vaccination: Yes <AVIS GLORIA - Last Filed: 06/22/16 14:39> Review of Systems - Review of Systems Constitutional: No symptoms reported EENT: No symptoms reported Cardiovascular: See HPI, Chest pain Respiratory: No symptoms reported Gastrointestinal: No symptoms reported Genitourinary: No symptoms reported Female Genitourinary: No symptoms reported Musculoskeletal: See HPI, Joint pain - RUE Skin: No symptoms reported Hematologic/Lymphatic: No symptoms reported Neurological/Psychological: See HPI, Depression <AVIS GLORIA - Last Filed: 06/22/16 14:39> Physical Exam <MANUEL AGEE - Last Filed: 06/22/16 09:22> <AVIS GLORIA - Last Filed: 06/22/16 14:39> <NILDA STEVENS - Last Filed: 06/22/16 17:18> - Vital signs Vitals: Temp Pulse Resp BP Pulse Ox 98.7 F 79 17 122/75 98 06/22/16 05:10 06/22/16 05:10 06/22/16 05:10 06/22/16 05:10 06/22/16 05:10 - Notes Notes: Physical Exam: General: Alert, appears well. HEENT: Normocephalic. Atraumatic. PERRL. Extraocular movements intact. Oropharynx clear. Neck: Supple. Non-tender. Respiratory: No respiratory distress. Clear and equal breath sounds bilaterally. Cardiovascular: Regular rate and rhythm. Abdominal: Normal Inspection. Non-tender. No distension. Normal Bowel Sounds. Back: Non-tender. No deformity or step off. Extremities: Moves all four extremities. Upper extremities: Normal inspection. Non-tender. Normal color. Normal ROM. Normal temperature. Lower extremities: Normal inspection. No edema. Normal ROM. Neurological: Normal cognition. AAOx4. Normal speech. Psychological: Normal affect. Normal Mood. Skin: Warm. Dry. Normal color. (AVIS GLORIA) Course - Laboratory Result Diagrams: 06/22/16 05:25 06/22/16 05:25 <MANUEL AGEE - Last Filed: 06/22/16 09:22> - Laboratory Result Diagrams: 06/22/16 05:25 06/22/16 05:25 <AVIS GLORIA - Last Filed: 06/22/16 14:39> - Laboratory Result Diagrams: 06/22/16 05:25 06/22/16 05:25 <NILDA STEVENS - Last Filed: 06/22/16 17:18> - Re-evaluation Re-evalutation: 06/22/16 09:22 Pt seen and evaluated by mental health and myself. Patient is not suicidal on my exam and has no complaints at this time. Will discharge patient home with follow-up at [facility] for polysubstance abuse. (MANUEL AGEE) 06/22/16 07:48 Patient presents to emergency Department crying and stating that she has had a lot of bad things happening recently including having her children taken away from her. She does have an extensive psychiatric history and apparently is well known to this emergency Department. The patient is stating that she is having a heart attack. She is clearly having a panic attack and is holding her right arm up and stating that she has pain over her right shoulder her right breast her right chest. Any movement of the right upper extremity or even light touch to the arm, she states, gets her excruciating pain. Patient denies any shortness of breath. She's not had any recent fevers chills or sweats. No cough cold or flulike symptoms. No nausea vomiting or diarrhea. Patient denies suicidal or homicidal ideation. The patient was given Geodon shortly after arrival as she was quite agitated and aggressive with the nurses. On exam, patient is alert and oriented in mild distress secondary to anxiety, she is crying and yelling. She is alert and oriented. The chest sounds are clear and equal bilaterally. Heart rate and rhythm are normal no murmurs. Abdomen soft and nontender. Patient has no peripheral edema. There are no rashes. Medical decision making: Patient presents with a high level of anxiety and agitation. She was initially given Geodon which calmed her and she no longer complained of any pain symptoms. I do not believe her pain is cardiac related as she is young and low risk. She has Heart Score of 1. The patient was seen by mental health data power consultant for further disposition. 06/22/16 17:10 06/22/16 17:15 (NILDA STEVENS) - Vital Signs Vital signs: Temp Pulse Resp BP Pulse Ox 98.0 F 76 20 122/90 H 97 06/22/16 08:53 06/22/16 08:53 06/22/16 08:53 06/22/16 08:53 06/22/16 08:53 - Laboratory Laboratory results interpreted by me: 06/22/16 06/22/16 06/22/16 05:25 05:25 05:25 WBC 11.8 H Lymphocytes % 12.7 L Absolute Neutrophils 8.6 H AST 12 L Ur Leukocyte Esterase TRACE H Salicylates Acetaminophen 06/22/16 05:25 WBC Lymphocytes % Absolute Neutrophils AST Ur Leukocyte Esterase Salicylates < 1.0 L Acetaminophen < 10 L - EKG Interpretation by Me Additional EKG results interpreted by me: 06/22/16 07:47 Heart rate 73, normal sinus rhythm, normal axis, normal intervals, no ST elevations, as interpreted by me. Compared with EKG of 09/25/15, no significant change. 06/22/16 17:18 (NILDA STEVENS) Discharge <MANUEL AGEE - Last Filed: 06/22/16 09:22> <AVIS GLORIA - Last Filed: 06/22/16 14:39> <NILDA STEVENS - Last Filed: 06/22/16 17:18> - Discharge Clinical Impression: Polysubstance abuse Condition: Stable Disposition: HOME, SELF-CARE Additional Instructions: COCAINE ABUSE: Cocaine causes many dangerous medical problems. Problems can occur even with "usual" amounts. Cocaine affects judgement, creating a sense of invulnerability. Cocaine users often make bad decisions that seem "great" at the time. Most cocaine users eventually will be hurt by bad job performance, damaged personal relations, crime, and unsafe sexual practices. Toxic effects of cocaine can include seizures, hallucinations, delusions, high blood pressure, heart damage, or sudden . There's always the risk of a "bad batch." But heart attacks, brain hemorrhages, or cardiac arrest can occur unpredictably even with "normal" use. Injection of cocaine is risky for abscesses, endocarditis (heart infection) , pneumonia, and AIDS. Withdrawal from cocaine often causes anxiety and drug cravings. Some users become paranoid and psychotic. Many treatment programs are available, but you must make the decision to quit. Medication can be prescribed to control the symptoms of cocaine toxicity (beta blockers or benzodiazepines). Withdrawal symptoms may require tranquilizers. INSTRUCTIONS FOR HOME CARE FOLLOWING DRUG OVERDOSAGE: The doctor feels it's safe for you to go home. You will need to be observed. If charcoal and a laxative was given to you, expect some loose black stools soon. Take no medications unless approved by a physician, including alcohol. If drowsy, lie on your stomach or side for sleeping to avoid aspiration if vomiting occurs. Take only liquids by mouth until there is no more nausea. FOR THE OBSERVER: Observe the patient for the next 24 hours and call or go to the hospital if any of the following are noted: prolonged or repeated vomiting, difficulty in arousing, convulsions (seizures or fits), fever, persistent cough, breathing that is too slow or too rapid, or confused or bizarre behavior. If a counselling visit has been arranged, make sure the patient attends. Call the physician or poison control if you have questions. FOLLOW-UP CARE: If you have been referred to a physician for follow-up care, call the physician s office for an appointment as you were instructed or within the next two days. If you experience worsening or a significant change in your symptoms, notify the physician immediately or return to the Emergency Department at any time for re-evaluation. Referrals: [facility] [Outside] - Follow up as needed
[2016-06-22 06:54] LABS: ALCOHOL < 10 mg/dL (NONE DETECTED)
[2016-06-22 07:30] LABS: URINE BARBITURATES SCREEN NEGATIVE; URINE METHADONE SCREEN NEGATIVE; URINE OPIATES LOW NEGATIVE; URINE PHENCYCLIDINE SCREEN NEGATIVE
--- NOTE | 2016-06-22 08:27 | EKG REPORT ---
SEVERITY:- ABNORMAL ECG - SINUS RHYTHM RBBB AND LAFB PROBABLE LEFT VENTRICULAR HYPERTROPHY : Confirmed by: Ivan Obrien MD 22-Jun-2016 08:25:48
[2016-06-22 08:59] VITALS: BP 122/90
--- NOTE | 2016-06-27 15:42 | PSYCHOLOGICAL NOTE ---
Psych Note - Psych Note Psych Note: Patient is a 40-year-old female with documented psychiatric history including schizophrenia and depression that presents to the emergency department today with complaints of "needing psychiatric help". Patient states that she has had recent at home stressors including losing her daughter to [facility] and her boyfriend leaving her. Patient is acting somewhat bizarre, crying, and also complaining of right-sided arm, back, and chest pain stating "I am having a heart attack". Patient states that she has pain in her arm and does not feel well. She continued disclosed her boyfriend left her and no one cares about her. She states that she goes to [facility]. Patient denies that she does marijuana or cocaine. Patient continued to state that she does not feel suicidal however wants someone to talk to. Patient is alert and orientated to person, place, time and circumstance. Mood is irritable with labile affect; patient is observed moaning crying and yelling. Patient denies suicidal and homicidal ideation. Patient denies auditory and visual hallucinations; patient is not demonstrating behaviour what would be congruent to responding to internal stimuli. No delusions are noted. Thought process is organized and linear. Eye contact was well maintained. Intellectual abilities appear to be within average range. Attention and concentration is poor. Insight, judgment, and impulse control is historical poor. Diagnosis: 292.9 (F14.99) Unspecified Cocaine Related Disorder Schizophrenia by History R/O 295.70 (F25.0) Schizoaffective Disorder, Bipolar Type Impression/Plan: Patient is considered psychiatrically cleared for discharge. Patient presents with a significant behavioral component considered cured at medications and/or remaining in the ER. Patient was uncooperative and did not engage in conversation; however, does not meet criteria for involuntary commitment as she denied SI/HI upon arrival. Patient has a rather lengthy history of behavioral outbursts and presentations and this department to also include substance abuse (cocaine). Patient is recommended to follow-up with outpatient services through home mental health provider [facility]. Dr. Restrepo was consulted on the care and management of this patient.
== END 2016-06-22 09:35 | disposition home or self-care (01) ==
LOC: ER 05:04
DX: F19.10 Other psychoactive substance abuse, uncomplicated (principal); F14.99 Cocaine use, unspecified with unspecified cocaine-induced disorder; F25.0 Schizoaffective disorder, bipolar type; F32.9 Major depressive disorder, single episode, unspecified; R07.9 Chest pain, unspecified; E66.9 Obesity, unspecified; M25.511 Pain in right shoulder; N64.4 Mastodynia; R07.89 Other chest pain; Z88.6 Allergy status to analgesic agent
CPT/HCPCS: 93005; 99285; 96372; 36415; 80307 ×4; 85025; 81025; 80053; 81001; 93010; J3486

== ENCOUNTER 2016-09-30 04:09 | Emergency (ER) | payer MEDICARE, OTHER ==
[2016-09-30] MEDS ORDERED: DIPHENHYDRAMINE HCL 50 MG/ML VIAL IM ONE (06:30)
[2016-09-30] MEDS ORDERED: HALOPERIDOL LACTATE INJ 5 MG/1 ML VIAL IM ONE (06:30)
[2016-09-30] MEDS ORDERED: LORAZEPAM INJ 2 MG/1 ML VIAL IM ONE (06:30)
[2016-09-30] MEDS ORDERED: HALOPERIDOL LACTATE INJ 5 MG/1 ML VIAL ONE (06:33)
[2016-09-30] MEDS ORDERED: DIPHENHYDRAMINE HCL 50 MG/ML VIAL ONE (06:34)
[2016-09-30] MEDS ORDERED: LORAZEPAM INJ 2 MG/1 ML VIAL ONE (06:35)
[2016-09-30 06:41] LABS: APPEARANCE,URINE SLIGHTLY-CLOUDY; BILIRUBIN,URINE NEGATIVE (NEGATIVE); GLUCOSE, URINE NEGATIVE (NEGATIVE); KETONES,URINE NEGATIVE (NEGATIVE); LEUKOCYTE ESTERASE,URINE NEGATIVE (NEGATIVE); NITRITE,URINE NEGATIVE (NEGATIVE); PROTEIN,URINE 30 mg/dL (NEGATIVE); URINE BARBITURATES SCREEN NEGATIVE; URINE METHADONE SCREEN NEGATIVE; URINE OPIATES LOW NEGATIVE; URINE PHENCYCLIDINE SCREEN NEGATIVE; URINE SPECIFIC GRAVITY 1.027; UROBILINOGEN,URINE NEGATIVE mg/dL (<2.0)
[2016-09-30 08:04] LABS: ABSOLUTE BASOPHILS # (AUTO) 0.1 10^3/uL (0.0-0.2); ABSOLUTE EOSINOPHILS # (AUTO) 0.3 10^3/uL (0.0-0.6); BASOPHILS % (AUTO) 0.7 % (0-2); EOSINOPHILS % (AUTO) 3.3 % (0-6); HEMATOCRIT 43.8 % (36.0-47.0); HEMOGLOBIN 14.9 g/dL (12.0-15.5); HGB HCT DIFFERENCE 0.9; LYMPHOCYTES % (AUTO) 24.2 % (13-45); MEAN CORPUSCULAR HEMOGLOBIN 30.5 pg (27.0-33.4); MEAN CORPUSCULAR HGB CONC 34.1 g/dL (32.0-36.0); MEAN CORPUSCULAR VOLUME 89 fl (80-97); SEGMENTED NEUTROPHILS % (AUTO) 59.8 % (42-78); WHITE BLOOD COUNT 8.4 10^3/uL (4.0-10.5)
[2016-09-30 08:33] LABS: ALANINE AMINOTRANSFERASE 29 U/L (9-52); ALBUMIN 4.2 g/dL (3.5-5.0); ALKALINE PHOSPHATASE 76 U/L (38-126); ANION GAP 10 (5-19); ASPARTATE AMINO TRANSFERASE 30 U/L (14-36); BILIRUBIN,DIRECT 0.3 mg/dL (0.0-0.4); BILIRUBIN,TOTAL 0.9 mg/dL (0.2-1.3); BLOOD UREA NITROGEN 21 mg/dL (7-20); CALCIUM 9.2 mg/dL (8.4-10.2); CARBON DIOXIDE 27 mmol/L (22-30); CHLORIDE 101 mmol/L (98-107); GLUCOSE 98 mg/dL (75-110); POTASSIUM 4.2 mmol/L (3.6-5.0); SODIUM 138.2 mmol/L (137-145); TOTAL PROTEIN 8.1 g/dL (6.3-8.2)
[2016-09-30 08:35] LABS: ALCOHOL < 10 mg/dL (NONE DETECTED)
--- NOTE | 2016-09-30 10:50 | ER Document Report ---
ED Psych Disorder / Suicide - General Chief Complaint: Psych Problem Stated Complaint: DOESN'T FEEL WELL Time Seen by Provider: 09/30/16 05:49 Information source: Patient TRAVEL OUTSIDE OF THE [place] IN LAST 30 DAYS: No - HPI Notes: pt presents to the ED with c/o not feeling well, pt reports that she wants psychiatirc help pt tearful as she states this, cringing away from staff interactions. pt not allowing staff to place BP cuff or other assessment materials on her, insists on doing it herself. Patient states she doesn't feel well "at all." Patient states she just needs "concern and consideration because I was getting yelled at." Patient was able to clarify she was yelled at before coming to [facility] ED. Patient disclosed the last time she did coke was 3 days ago. Patient refused to continue in evaluation by "falling asleep" during talking and mumbling. Patient is alert and oriented. Mood is irritable and labile with congruent affect for [facility] Staff prior to evaluation- at evaluation patient demonstrated euthymic mood and "falling asleep." Patient denied suicidal/homicidal ideations during psychiatric evaluation. Patient does not appear to be responding to internal stimuli nor is it documented within her medical history. Thought processes were guarded and goal oriented towards remaining in the ED, as evidenced by refusing to engage in conversation. Conversational speech was mumbed and difficult to understand. Intellectual abilities were estimated within average range. Attention and focus were fair. Insight, judgment, impulse control were poor. 292.9 (F14.99) Unspecified Cocaine Related Disorder Schizophrenia by History R/O 295.70 (F25.0) Schizoaffective Disorder, Bipolar Type Impression/Plan: Patient is considered psychiatrically cleared for discharge. Patient presents with a significant behavioral component. Patient was uncooperative and did not engage in conversation; however, does not meet criteria for involuntary commitment as she denied SI/HI upon arrival. Patient has a rather lengthy history of behavioral outbursts and presentations and this department to also include substance abuse (cocaine). Patient is recommended to follow-up with outpatient services through home mental health provider [facility]. Dr. Restrepo was consulted on the care and management of this patient. - Related Data Allergies/Adverse Reactions: acetaminophen [From Tylenol] Allergy (Severe, Verified 09/30/16 06:47) sick,sick,sick per patient banana [Banana] Allergy (Unknown, Verified 09/30/16 06:47) codeine [Codeine] Allergy (Unknown, Verified 09/30/16 06:47) pseudoephedrine [Pseudoephedrine] Allergy (Unknown, Verified 09/30/16 06:47) shrimp Allergy (Verified 09/30/16 06:47) VOMITING hotdogs Allergy (Uncoded 09/30/16 06:47) Past Medical History - Social History Smoking Status: Current Some Day Smoker Frequency of alcohol use: None Drug Abuse: None Family History: Reviewed & Not Pertinent Patient has suicidal ideation: No Patient has homicidal ideation: No Renal/ Medical History: Denies: Hx Peritoneal Dialysis Psychiatric Medical History: Reports: Hx Bipolar Disorder, Hx Depression, Hx Schizophrenia Past Surgical History: Reports: Hx Section - Immunizations Hx Diphtheria, Pertussis, Tetanus Vaccination: Yes Physical Exam - Vital signs Vitals: Temp Pulse Resp BP Pulse Ox 98.0 F 72 18 116/75 97 09/30/16 04:36 09/30/16 04:36 09/30/16 04:36 09/30/16 04:36 09/30/16 04:36 Course - Vital Signs Vital signs: Temp Pulse Resp BP Pulse Ox 98.0 F 72 17 116/75 100 09/30/16 04:36 09/30/16 04:36 09/30/16 05:42 09/30/16 04:36 09/30/16 05:42 - Laboratory Result Diagrams: 09/30/16 07:54 09/30/16 07:54 Laboratory results interpreted by me: 09/30/16 09/30/16 05:59 07:54 BUN 21 H Urine Protein 30 H Salicylates < 1.0 L Acetaminophen < 10 L Discharge - Discharge Clinical Impression: Cocaine abuse Condition: Stable Disposition: HOME, SELF-CARE Additional Instructions: COCAINE ABUSE: Cocaine causes many dangerous medical problems. Problems can occur even with "usual" amounts. Cocaine affects judgement, creating a sense of invulnerability. Cocaine users often make bad decisions that seem "great" at the time. Most cocaine users eventually will be hurt by bad job performance, damaged personal relations, crime, and unsafe sexual practices. Toxic effects of cocaine can include seizures, hallucinations, delusions, high blood pressure, heart damage, or sudden . There's always the risk of a "bad batch." But heart attacks, brain hemorrhages, or cardiac arrest can occur unpredictably even with "normal" use. Injection of cocaine is risky for abscesses, endocarditis (heart infection) , pneumonia, and AIDS. Withdrawal from cocaine often causes anxiety and drug cravings. Some users become paranoid and psychotic. Many treatment programs are available, but you must make the decision to quit. Medication can be prescribed to control the symptoms of cocaine toxicity (beta blockers or benzodiazepines). Withdrawal symptoms may require tranquilizers. FOLLOW-UP CARE: Please follow up with [facility] for your substance abuse and mental health services in 3-5 days. If you experience worsening or a significant change in your symptoms, notify the physician immediately or return to the Emergency Department at any time for re-evaluation. Referrals: [facility] [Outside] - Follow up in 3-5 days
[2016-09-30 11:09] VITALS: BP 129/88
--- NOTE | 2016-09-30 11:09 | ER Document Report ---
ED General - General Chief Complaint: Psych Problem Stated Complaint: DOESN'T FEEL WELL Time Seen by Provider: 09/30/16 05:49 Mode of Arrival: Ambulatory Information source: Patient Notes: 40 yr old female extensive hx of cocaine abuse presents with complaints of generalized not feeling well, feeling shaky, feeling hungry. Pt denies any fevers or chills. denies any nausea or vomiting. Pt notes she last used cocaine 2 days ago.. denies any chest pain TRAVEL OUTSIDE OF THE [place] IN LAST 30 DAYS: No - HPI Onset: Just prior to arrival Onset/Duration: Sudden Quality of pain: Achy Severity: Mild Pain Level: 1 Associated symptoms: Body/muscle aches, Sweating Exacerbated by: Denies Relieved by: Denies Similar symptoms previously: No Recently seen / treated by doctor: No - Related Data Allergies/Adverse Reactions: acetaminophen [From Tylenol] Allergy (Severe, Verified 09/30/16 06:47) sick,sick,sick per patient banana [Banana] Allergy (Unknown, Verified 09/30/16 06:47) codeine [Codeine] Allergy (Unknown, Verified 09/30/16 06:47) pseudoephedrine [Pseudoephedrine] Allergy (Unknown, Verified 09/30/16 06:47) shrimp Allergy (Verified 09/30/16 06:47) VOMITING hotdogs Allergy (Uncoded 09/30/16 06:47) Past Medical History - General Information source: Patient - Social History Smoking Status: Current Some Day Smoker Cigarette use (# per day): Yes Chew tobacco use (# tins/day): No Smoking Education Provided: No Frequency of alcohol use: None Drug Abuse: Cocaine Family History: Reviewed & Not Pertinent Patient has suicidal ideation: No Patient has homicidal ideation: No Renal/ Medical History: Denies: Hx Peritoneal Dialysis Psychiatric Medical History: Reports: Hx Bipolar Disorder, Hx Depression, Hx Schizophrenia Past Surgical History: Reports: Hx Section - Immunizations Hx Diphtheria, Pertussis, Tetanus Vaccination: Yes Review of Systems - Review of Systems Notes: REVIEW OF SYSTEMS: CONSTITUTIONAL : Admits to generalized not feeling well shakiness EENT: Denies eye, ear, throat, or mouth pain or symptoms. Denies nasal or sinus congestion or discharge. Denies throat, tongue, or mouth swelling or difficulty swallowing. CARDIOVASCULAR: Denies chest pain. Denies palpitations or racing or irregular heart beat. Denies ankle edema. RESPIRATORY: Denies cough, cold, or chest congestion. Denies shortness of breath, difficulty breathing, or wheezing. GASTROINTESTINAL: Denies abdominal pain or distention. Denies nausea, vomiting , or diarrhea. Denies blood in vomitus, stools, or per rectum. Denies black, tarry stools. Denies constipation. GENITOURINARY: Denies difficulty urinating, painful urination, burning, frequency, blood in urine, or discharge. FEMALE GENITOURINARY: Denies vaginal bleeding, heavy or abnormal periods, irregular periods. Denies vaginal discharge or odor. MUSCULOSKELETAL: Admits to body aches SKIN: Denies rash, lesions or sores. HEMATOLOGIC : Denies easy bruising or bleeding. LYMPHATIC: Denies swollen, enlarged glands. NEUROLOGICAL: Denies confusion or altered mental status. Denies passing out or loss of consciousness. Denies dizziness or lightheadedness. Denies headache. Denies weakness or paralysis or loss of use of either side. Denies problems with gait or speech. Denies sensory loss, numbness, or tingling. Denies seizures. PSYCHIATRIC: Denies anxiety or stress. Denies depression, suicidal ideation, or homicidal ideation. ALL OTHER SYSTEMS REVIEWED AND NEGATIVE. PHYSICAL EXAMINATION: GENERAL: Patient is yelling in the room screaming stating that we are trying to assault her appears much older than stated age HEAD: Atraumatic, normocephalic. EYES: Pupils equal round and reactive to light, extraocular movements intact, conjunctiva are normal. ENT: Nares patent, oropharynx clear without exudates. Moist mucous membranes. NECK: Normal range of motion, supple without lymphadenopathy LUNGS: Breath sounds clear to auscultation bilaterally and equal. No wheezes rales or rhonchi. HEART: Regular rate and rhythm without murmurs ABDOMEN: Soft, nontender, nondistended abdomen. No guarding, no rebound. No masses appreciated. Female : deferred Musculoskeletal: Normal range of motion, no pitting or edema. No cyanosis. NEUROLOGICAL: Cranial nerves grossly intact. Normal speech, normal gait. Normal sensory, motor exams PSYCH: Normal mood, normal affect. SKIN: Warm, Dry, normal turgor, no rashes or lesions noted. Dictation was performed using [employer] recognition software Physical Exam - Vital signs Vitals: Temp Pulse Resp BP Pulse Ox 98.0 F 72 18 116/75 97 09/30/16 04:36 09/30/16 04:36 09/30/16 04:36 09/30/16 04:36 09/30/16 04:36 Course - Re-evaluation Re-evalutation: 09/30/16 11:25 Physical examination noted no significant abnormality, lab works only significant abnormality was positive cocaine which the patient does finally admit that she takes. Patient has been sleeping comfortably for approximately 4 and half hours and was evaluated by mental health they believe that she is stable for discharge. I agree as medically she is stable. - Vital Signs Vital signs: Temp Pulse Resp BP Pulse Ox 97.5 F 80 18 129/88 H 99 09/30/16 11:08 09/30/16 11:08 09/30/16 11:08 09/30/16 11:08 09/30/16 11:08 - Laboratory Result Diagrams: 09/30/16 07:54 09/30/16 07:54 Laboratory results interpreted by me: 09/30/16 09/30/16 05:59 07:54 BUN 21 H Urine Protein 30 H Salicylates < 1.0 L Acetaminophen < 10 L Discharge - Discharge Clinical Impression: Cocaine abuse Condition: Stable Disposition: HOME, SELF-CARE Additional Instructions: COCAINE ABUSE: Cocaine causes many dangerous medical problems. Problems can occur even with "usual" amounts. Cocaine affects judgement, creating a sense of invulnerability. Cocaine users often make bad decisions that seem "great" at the time. Most cocaine users eventually will be hurt by bad job performance, damaged personal relations, crime, and unsafe sexual practices. Toxic effects of cocaine can include seizures, hallucinations, delusions, high blood pressure, heart damage, or sudden . There's always the risk of a "bad batch." But heart attacks, brain hemorrhages, or cardiac arrest can occur unpredictably even with "normal" use. Injection of cocaine is risky for abscesses, endocarditis (heart infection) , pneumonia, and AIDS. Withdrawal from cocaine often causes anxiety and drug cravings. Some users become paranoid and psychotic. Many treatment programs are available, but you must make the decision to quit. Medication can be prescribed to control the symptoms of cocaine toxicity (beta blockers or benzodiazepines). Withdrawal symptoms may require tranquilizers. FOLLOW-UP CARE: Please follow up with [facility] for your substance abuse and mental health services in 3-5 days. If you experience worsening or a significant change in your symptoms, notify the physician immediately or return to the Emergency Department at any time for re-evaluation. Referrals: [facility] [Outside] - Follow up in 3-5 days
--- NOTE | 2016-10-01 13:38 | EKG REPORT ---
SEVERITY:- ABNORMAL ECG - SINUS RHYTHM ATRIAL PREMATURE COMPLEX RBBB AND LAFB : Confirmed by: Richa Sullivan MD 01-Oct-2016 13:37:29
== END 2016-09-30 11:22 | disposition home or self-care (01) ==
LOC: ER 04:09
DX: F14.10 Cocaine abuse, uncomplicated (principal); M79.1 Myalgia; R61 Generalized hyperhidrosis; F17.210 Nicotine dependence, cigarettes, uncomplicated; Z88.6 Allergy status to analgesic agent; Z88.5 Allergy status to narcotic agent; Z88.8 Allergy status to other drugs, medicaments and biological substances; Z91.013 Allergy to seafood; Z91.018 Allergy to other foods
CPT/HCPCS: 93005; 99285; 96372; 36415; 80307 ×4; 84703; 85025; 80053; 81001; 93010; J1200; J1630; J2060

== ENCOUNTER 2019-04-19 08:43 | Emergency (ER) | payer MEDICARE, MEDICAID ==
[2019-04-19 09:29] LABS: ABSOLUTE MONOCYTES (AUTO) 0.8 10^3/uL (0.1-1.4); ABSOLUTE NEUT (AUTO) 12.3 10^3/uL (1.7-8.2); BASOPHILS % (AUTO) 0.3 % (0-2); HEMATOCRIT 43.1 % (36.0-47.0); HEMOGLOBIN 15.1 g/dL (12.0-15.5); LYMPHOCYTES % (AUTO) 6.9 % (13-45); MEAN CORPUSCULAR HEMOGLOBIN 30.6 pg (27.0-33.4); MEAN CORPUSCULAR HGB CONC 34.9 g/dL (32.0-36.0); MEAN CORPUSCULAR VOLUME 88 fl (80-97); MONOCYTES % (AUTO) 5.8 % (3-13); PLATELET COUNT 343 10^3/uL (150-450); RED BLOOD COUNT 4.93 10^6/uL (3.72-5.28); RED CELL DISTRIBUTION WIDTH 13.4 % (11.5-14.0); TOTAL CELLS COUNTED % (AUTO) 100 %; WHITE BLOOD COUNT 14.2 10^3/uL (4.0-10.5)
[2019-04-19 09:38] LABS: APPEARANCE,URINE CLOUDY; BILIRUBIN,URINE NEGATIVE (NEGATIVE); COLOR,URINE AMBER; GLUCOSE, URINE NEGATIVE (NEGATIVE); KETONES,URINE 20 mg/dL (NEGATIVE); LEUKOCYTE ESTERASE,URINE NEGATIVE (NEGATIVE); NITRITE,URINE NEGATIVE (NEGATIVE); PROTEIN,URINE 100 mg/dL (NEGATIVE); URINE SPECIFIC GRAVITY 1.034
[2019-04-19 09:40] LABS: ALBUMIN 4.5 g/dL (3.5-5.0); ALKALINE PHOSPHATASE 93 U/L (38-126); ANION GAP 14 (5-19); ASPARTATE AMINO TRANSFERASE 27 U/L (14-36); BILIRUBIN,TOTAL 0.7 mg/dL (0.2-1.3); BLOOD UREA NITROGEN 25 mg/dL (7-20); CALCIUM 9.6 mg/dL (8.4-10.2); CARBON DIOXIDE 28 mmol/L (22-30); CHLORIDE 95 mmol/L (98-107); GLUCOSE 174 mg/dL (75-110); POTASSIUM 3.8 mmol/L (3.6-5.0); TOTAL PROTEIN 8.1 g/dL (6.3-8.2)
[2019-04-19] MEDS ORDERED: NORMAL SALINE 1000 ML 1,000 ML IV ONE (10:30)
--- NOTE | 2019-04-19 10:33 | ER Document Report ---
ED GI/ - General Chief Complaint: Abdominal Pain Stated Complaint: ABDOMINAL PAIN Time Seen by Provider: 04/19/19 10:11 Information source: Patient Notes: HPI: Patient is a 44-year-old female with past medical history as recorded including schizophrenia who presents today with the onset last night of some diffuse abdominal "knifelike" pain. She states it hurts more when she tries to sit up. She has had some vomiting. Last week she had diarrhea. She has had no dysuria, chest pain, shortness of breath, or cough. She does state some pain to the left ear. She denies any headache or sore throat. No blood in the vomit. ROS: See HPI All other review of systems reviewed and otherwise negative Reviewed vital signs and nursing note as charted by RN. PHYSICAL EXAM: CONSTITUTIONAL: Alert and oriented and responds appropriately to questions. Well-appearing; well-nourished HEAD: Normocephalic; atraumatic EYES: Sclerae non-icteric ENT: Normal nose; no rhinorrhea; moist mucous membranes; pharynx without lesions noted NECK: Supple without meningismus; non-tender; no cervical lymphadenopathy, no masses CARD: Regular rate and rhythm; no murmurs; symmetric distal pulses RESP: Normal chest excursion without splinting or tachypnea; breath sounds clear and equal bilaterally; no wheezes, no rhonchi, no rales ABD/GI: Normal bowel sounds; non-distended; soft, mildly tender to palpation of the bilateral lower quadrants of the abdomen. No rebound or guarding. No palpable masses. No upper abdominal tenderness BACK: The back appears normal and is non-tender to palpation EXT: Normal ROM in all joints; non-tender to palpation; no edema SKIN: No acute lesions noted NEURO: CN 2-12 intact; 5/5 bilateral upper and lower extremity strength with sensation intact to light touch PSYCH: The patient's mood and manner are appropriate. Grooming and personal hygiene are appropriate. TRAVEL OUTSIDE OF THE [place] IN LAST 30 DAYS: No - Related Data Allergies/Adverse Reactions: acetaminophen [From Tylenol] Allergy (Severe, Verified 09/30/16 06:47) sick,sick,sick per patient banana [Banana] Allergy (Unknown, Verified 09/30/16 06:47) codeine [Codeine] Allergy (Unknown, Verified 09/30/16 06:47) pseudoephedrine [Pseudoephedrine] Allergy (Unknown, Verified 09/30/16 06:47) shrimp Allergy (Verified 09/30/16 06:47) VOMITING hotdogs Allergy (Uncoded 09/30/16 06:47) Home Medications: zyprexa Past Medical History - Social History Smoking Status: Unknown if Ever Smoked Family History: Reviewed & Not Pertinent Patient has suicidal ideation: No Patient has homicidal ideation: No Renal/ Medical History: Denies: Hx Peritoneal Dialysis Psychiatric Medical History: Reports: Hx Bipolar Disorder, Hx Depression, Hx Schizophrenia Past Surgical History: Reports: Hx Section - Immunizations Hx Diphtheria, Pertussis, Tetanus Vaccination: Yes Physical Exam - Vital signs Vitals: Temp Pulse Resp BP Pulse Ox 97.5 F 86 22 H 145/67 H 98 04/19/19 09:14 04/19/19 09:14 04/19/19 09:14 04/19/19 09:14 04/19/19 09:14 Course - Re-evaluation Re-evalutation: Given the above history and physical examination, we will obtain basic labs, liver panel and lipase, urine analysis, and obtain a CT scan of the abdomen and pelvis. I would like to evaluate for the possibility of urinary tract infecti on, pancreatitis, liver abnormality, acute appendicitis, or other acute pathology. Given the combination of some preceding diarrhea with some intermittent abdominal discomfort, worse when sitting up, I do believe acute ovarian torsion to be unlikely. 04/19/19 10:32 Labs initially as recorded. 04/19/19 12:[address] imaging as recorded. Given the constellation of symptoms including some ear discomfort with some diarrhea, with an unremarkable CT scan, I do believe that this is most likely viral in etiology. I will discharge the patient home with a course of nausea medications with strict return precautions and follow-up with the primary care physician. - Vital Signs Vital signs: Temp Pulse Resp BP Pulse Ox 97.5 F 86 22 H 145/67 H 98 04/19/19 09:14 04/19/19 09:14 04/19/19 09:14 04/19/19 09:14 04/19/19 09:14 - Laboratory Result Diagrams: 04/19/19 09:00 04/19/19 09:00 Laboratory results interpreted by me: 04/19/19 04/19/19 04/19/19 09:00 09:00 09:05 WBC 14.2 H Lymph % (Auto) 6.9 L Absolute Neuts (auto) 12.3 H Seg Neutrophils % 87.0 H Sodium 136.5 L Chloride 95 L BUN 25 H Glucose 174 H Urine Protein 100 H Urine Ketones 20 H Urine Urobilinogen 2.0 H Urine Ascorbic Acid 40 H Discharge - Discharge Clinical Impression: Nausea vomiting and diarrhea Abdominal pain Qualifiers: Abdominal location: unspecified location Qualified Code(s): R10.9 - Unspecified abdominal pain Condition: Good Disposition: HOME, SELF-CARE Additional Instructions: Come back immediately for any worsening pain, change in location or quality of pain, fevers or persistent vomiting, any blood in the vomit or diarrhea or any other problems. Please attempt to stay well-hydrated and take the antinausea medications as needed. Please follow-up with your primary care physician for reassessment. Prescriptions: Ondansetron [Zofran Odt 4 mg Tablet] 1 tab PO Q6H #10 tab.portillo
--- NOTE | 2019-04-19 12:14 | RADIOLOGY REPORT (SQ) ---
EXAM DESCRIPTION: CT ABD/PELVIS WITH IV ONLY COMPLETED DATE/TIME: 04/19/2019 11:02 am REASON FOR STUDY: 12; lower abdominal pain; schizophrenia COMPARISON: None. TECHNIQUE: CT scan of the abdomen and pelvis performed using helical scanning technique with dynamic intravenous contrast injection. No oral contrast. Images reviewed with lung, soft tissue, and bone windows. Reconstructed coronal and sagittal MPR images reviewed. Delayed images for evaluation of the urinary system also acquired. All images stored on PACS. All CT scanners at this facility use dose modulation, iterative reconstruction, and/or weight based d osing when appropriate to reduce radiation dose to as low as reasonably achievable (ALARA). [facility]: Dose Right [facility]: CareDose [facility]: Dose Right [facility]: Teradose 4D [facility]: [employer] CONTRAST TYPE AND DOSE: contrast/concentration: Isovue 350.00 mg/ml; Total Contrast Delivered: 88.0 ml; Total Saline Delivered: 69.0 ml RENAL FUNCTION: Creatinine 0.83 RADIATION DOSE: CT Rad equipment meets quality standard of care and radiation dose reduction techniq ues were employed. CTDIvol: 6.8 - 9.6 mGy. DLP: 810 mGy-cm.. LIMITATIONS: None. FINDINGS: LOWER CHEST: No consolidation or pleural effusion. LIVER: Normal size. No masses. No dilated ducts. SPLEEN: Normal size. No focal lesions. PANCREAS: No significant calcifications. No adjacent inflammation or peripancreatic fluid collections . Pancreatic duct not dilated. GALLBLADDER: No identified stones by CT criteria. No inflammatory changes to suggest cholecystitis. ADRENAL GLANDS: No significant masses or asymmetry. RIGHT KIDNEY AND URETER: No solid masses. No significant calcifications. No hydronephrosis or hyd roureter. LEFT KIDNEY AND URETER: No solid masses. No significant calcifications. No hydronephrosis or hydr oureter. AORTA AND VESSELS: No abdominal aortic aneurysm or evidence for acute dissection. Renal arteries, SMA , celiac artery are patent. RETROPERITONEUM: No retroperitoneal hemorrhage or masses. BOWEL AND PERITONEAL CAVITY: No dilated bowel loops or inflammatory changes. No free fluid or free ai r. APPENDIX: Normal. PELVIS: The uterus is present. No free fluid. Decompressed urinary bladder. ABDOMINAL WALL: Small fat containing umbilical hernia. BONES: No significant or acute findings. IMPRESSION: NO ACUTE FINDING IN THE ABDOMEN OR PELVIS ON CT SCAN WITH IV CONTRAST. TECHNICAL DOCUMENTATION: JOB ID: [id number] [facility] Quality ID # [id number]: Final reports with documentation of one or more dose reduction techniques (e.g., Au tomated exposure control, adjustment of the mA and/or kV according to patient size, use of iterative reconstruction technique) 2010 [employer]- All Rights Reserved Reading location - IP/workstation name: [email or web address]
[2019-04-19] MEDS ORDERED: ONDANSETRON HCL INJ/PF 4 MG/2 ML SDV IV ONE (12:15)
[2019-04-19] MEDS ORDERED: MORPHINE SULFATE 10 MG/ML INJ IV ONE (12:15)
[2019-04-19 13:00] VITALS: BP 146/87
== END 2019-04-19 13:00 | disposition home or self-care (01) ==
LOC: ER 08:43
DX: R11.2 Nausea with vomiting, unspecified (principal); R19.7 Diarrhea, unspecified; R10.9 Unspecified abdominal pain; H92.02 Otalgia, left ear
CPT/HCPCS: 36415; 84702; 83690; 85025; 80053; 81001; 74177; J2270; J2405; J7030; 96361; 96374; 96375; 99284

== ENCOUNTER 2019-04-20 15:37 | Emergency (ER) | payer MEDICARE, MEDICAID ==
--- NOTE | 2019-04-20 16:36 | ER Document Report ---
ED Medical Screen (RME) - General Chief Complaint: Pain All Over Stated Complaint: PAIN ALL OVER Time Seen by Provider: 04/20/19 16:18 Mode of Arrival: Ambulatory Information source: Patient Notes: Patient is a 43-year-old female with past medical history of schizophrenia presenting to the emergency department cough, congestion, body aches, fevers. Patient reports his symptoms ongoing for the last few days. Patient reports she was seen here yesterday. Patient reports that she was told yesterday she has a clot in her heart and she is very concerned that the doctor did not explain this to her. Lung sounds clear and equal bilaterally. Patient is a flight of ideas. I have greeted and performed a rapid initial assessment of this patient. A comprehensive ED assessment and evaluation of the patient, analysis of test results and completion of the medical decision making process will be conducted by additional ED providers. I have specifically instructed the patient or family members with the patient to immediately return to any nursing staff should anything change in the patient's condition or with their chief complaint. TRAVEL OUTSIDE OF THE [place] IN LAST 30 DAYS: No - Related Data Allergies/Adverse Reactions: acetaminophen [From Tylenol] Allergy (Severe, Verified 09/30/16 06:47) sick,sick,sick per patient codeine [Codeine] Allergy (Unknown, Verified 09/30/16 06:47) pseudoephedrine [Pseudoephedrine] Allergy (Unknown, Verified 09/30/16 06:47) shrimp Allergy (Verified 09/30/16 06:47) VOMITING hotdogs Allergy (Uncoded 09/30/16 06:47) Past Medical History Renal/ Medical History: Denies: Hx Peritoneal Dialysis Psychiatric Medical History: Reports: Hx Bipolar Disorder, Hx Depression, Hx Schizophrenia Past Surgical History: Reports: Hx Section - Immunizations Hx Diphtheria, Pertussis, Tetanus Vaccination: Yes Physical Exam - Vital signs Vitals: Temp Pulse Resp BP Pulse Ox 99.3 F 85 18 120/77 98 04/20/19 16:19 04/20/19 16:19 04/20/19 16:19 04/20/19 16:04/20/19 16:19 Course - Vital Signs Vital signs: Temp Pulse Resp BP Pulse Ox 99.3 F 85 18 120/77 98 04/20/19 16:19 04/20/19 16:19 04/20/19 16:19 04/20/19 16:19 04/20/19 16:19
[2019-04-20] MEDS ORDERED: IBUPROFEN 600 MG TABLET PO ONE (16:46)
--- NOTE | 2019-04-20 16:48 | ER Document Report ---
ED General - General Chief Complaint: Pain All Over Stated Complaint: PAIN ALL OVER Time Seen by Provider: 04/20/19 16:18 Mode of Arrival: Ambulatory Notes: HPI: 43-year-old female with past medical history as recorded including schizophrenia presents today for repeat visit after being seen yesterday by myself. At that time she had some bilateral ear pain as well as some nausea, vomiting, and diarrhea with some abdominal discomfort. Labs and imaging or unremarkable with a normal lipase, liver panel, and a CT scan of the abdomen and pelvis. Patient states that the vomiting and diarrhea and the abdominal discom fort has subsided but now the patient has developed a cough. She denies any chest pain with the coughing. She states she still has some bilateral ear pain. She denies any sore throat or fevers. She denies any headache or leg swelling. ROS: See HPI All other review of systems reviewed and otherwise negative Reviewed vital signs and nursing note as charted by RN. PHYSICAL EXAM: CONSTITUTIONAL: Alert and oriented and responds appropriately to questions. Well-appearing; well-nourished HEAD: Normocephalic; atraumatic EYES: PERRL; Conjunctivae clear, sclerae non-icteric ENT: Normal nose; no rhinorrhea; moist mucous membranes; no mastoid swelling or tenderness. TMs are clear bilaterally; pharynx without lesions noted NECK: Supple without meningismus; non-tender; no cervical lymphadenopathy, no masses CARD: Regular rate and rhythm; no murmurs; symmetric distal pulses RESP: Normal chest excursion without splinting or tachypnea; breath sounds clear and equal bilaterally; minimally scattered rhonchi without wheezing or rales ABD/GI: Normal bowel sounds; non-distended; soft, non-tender; no palpable organomegaly or masses BACK: The back appears normal and is non-tender to palpation EXT: Normal ROM in all joints; non-tender to palpation; no edema SKIN: No acute lesions noted NEURO: CN 2-12 intact; 5/5 bilateral upper and lower extremity strength with sensation intact to light touch PSYCH: The patient's mood and manner are appropriate. Grooming and personal hygiene are appropriate. TRAVEL OUTSIDE OF THE [place] IN LAST 30 DAYS: No - Related Data Allergies/Adverse Reactions: acetaminophen [From Tylenol] Allergy (Severe, Verified 09/30/16 06:47) sick,sick,sick per patient codeine [Codeine] Allergy (Unknown, Verified 09/30/16 06:47) pseudoephedrine [Pseudoephedrine] Allergy (Unknown, Verified 09/30/16 06:47) shrimp Allergy (Verified 09/30/16 06:47) VOMITING hotdogs Allergy (Uncoded 09/30/16 06:47) Past Medical History - General Information source: Patient - Social History Smoking Status: Current Some Day Smoker Family History: Reviewed & Not Pertinent Patient has suicidal ideation: No Patient has homicidal ideation: No Renal/ Medical History: Denies: Hx Peritoneal Dialysis Psychiatric Medical History: Reports: Hx Bipolar Disorder, Hx Depression, Hx Schizophrenia Past Surgical History: Reports: Hx Section - Immunizations Hx Diphtheria, Pertussis, Tetanus Vaccination: Yes Physical Exam - Vital signs Vitals: Temp Pulse Resp BP Pulse Ox 99.3 F 85 18 120/77 98 04/20/19 16:19 04/20/19 16:19 04/20/19 16:19 04/20/19 16:19 04/20/19 16:19 Course - Re-evaluation Re-evalutation: 04/20/19 16:47 Given the above history and physical, with a constellation of symptoms yesterday, now progressing to a cough, I do believe this is most likely viral in etiology. X-ray of the chest and influenza has been sent. Motrin has been provided. TMs are clear with no signs of mastoiditis. 04/20/19 17:49 Patient is flu positive. Symptoms have been ongoing for greater than 48 hours. I do not believe Tamiflu would be beneficial. X-ray of the chest on is unremarkable. Patient will be discharged home with strict return precautions and follow-up with the primary doctor. - Vital Signs Vital signs: Temp Pulse Resp BP Pulse Ox 99.3 F 85 18 120/77 98 04/20/19 16:19 04/20/19 16:19 04/20/19 16:19 04/20/19 16:19 04/20/19 16:19 Discharge - Discharge Clinical Impression: Influenza B Condition: Good Disposition: HOME, SELF-CARE Additional Instructions: Come back immediately for any worsening cough, difficulty breathing or swallowing, persistent vomiting or diarrhea, or any other acute problems. Please take ibuprofen every 6 hours as needed for fever control and body aches. Follow-up with your primary care physician as discussed.
[2019-04-20 17:16] LABS: A TYPE INFLUENZA AG NEGATIVE (NEGATIVE); B INFLUENZA AG POSITIVE (NEGATIVE)
--- NOTE | 2019-04-20 17:27 | RADIOLOGY REPORT (SQ) ---
EXAM DESCRIPTION: CHEST 2 VIEWS COMPLETED DATE/TIME: 04/20/2019 4:57 pm REASON FOR STUDY: 6; cough x1 day. Vomiting, fever, dizziness. COMPARISON: Chest x-ray 06/18/2016. EXAM PARAMETERS: NUMBER OF VIEWS: two views TECHNIQUE: Digital Frontal and Lateral radiographic views of the chest acquired. RADIATION DOSE: NA LIMITATIONS: none FINDINGS: LUNGS AND PLEURA: No consolidation, pneumothorax or pleural effusion. MEDIASTINUM AND HILAR STRUCTURES: No masses or contour abnormalities. HEART AND VASCULAR STRUCTURES: Heart normal size. No evidence for failure. BONES: No acute findings. HARDWARE: None in the chest. IMPRESSION: NO ACUTE RADIOGRAPHIC FINDING IN THE CHEST. TECHNICAL DOCUMENTATION: JOB ID: [id number] [employer]- All Rights Reserved Reading location - IP/workstation name: [email or web address]
[2019-04-20 17:57] VITALS: BP 132/93
== END 2019-04-20 18:02 | disposition home or self-care (01) ==
LOC: ER 15:37
DX: J10.1 Influenza due to other identified influenza virus with other respiratory manifestations (principal); H92.03 Otalgia, bilateral; R05 Cough; R09.89 Other specified symptoms and signs involving the circulatory and respiratory systems; F17.200 Nicotine dependence, unspecified, uncomplicated; Z88.6 Allergy status to analgesic agent; Z88.5 Allergy status to narcotic agent; Z88.8 Allergy status to other drugs, medicaments and biological substances; Z91.013 Allergy to seafood; Z91.018 Allergy to other foods
CPT/HCPCS: 87804; 71046; A9270

== ENCOUNTER 2019-05-06 13:20 | Emergency (ER) | payer MEDICARE, MEDICAID ==
[2019-05-06 13:34] VITALS: BP 133/89
--- NOTE | 2019-05-06 14:28 | ER Document Report ---
ED Skin Rash/Insect Bite/Abscs - General Chief Complaint: Insect Bite Stated Complaint: RIGHT ARM INSECT BITE Time Seen by Provider: 05/06/19 14:24 Primary Care Provider: ANTONIO AMBROCIO MD [Primary Care Provider] - Follow up in 3-5 days Notes: 43-year-old female presented to ED for complaint of insect bites to her left forearm. She is reassured that a brown recluse admit her yesterday. She did have 3 little spots on her left arm with a very minimal knot underneath the spots. There is no redness no inflammation no crater no signs or symptoms of any neurological changes. She is alert oriented respirations regular nonlabored speaking in full sentences. She states she was worried to about this insect bite so she came to the emergency room. TRAVEL OUTSIDE OF THE [place] IN LAST 30 DAYS: No - HPI Patient complains to provider of: Insect bite Onset: Yesterday Onset/Duration: Persistent Quality of pain: Achy Severity: Mild Pain Level: 1 Skin Character: Erythema - Very minimal less than 1 mm red spots x3 left arm Quality of rash: Itchy Identify cause: No Exacerbated by: Denies Relieved by: Denies Similar symptoms previously: No Recently seen / treated by doctor: No - Related Data Allergies/Adverse Reactions: acetaminophen [From Tylenol] Allergy (Severe, Verified 09/30/16 06:47) sick,sick,sick per patient codeine [Codeine] Allergy (Unknown, Verified 09/30/16 06:47) pseudoephedrine [Pseudoephedrine] Allergy (Unknown, Verified 09/30/16 06:47) shrimp Allergy (Verified 09/30/16 06:47) VOMITING hotdogs Allergy (Uncoded 09/30/16 06:47) Past Medical History - General Information source: Patient - Social History Smoking Status: Current Some Day Smoker Frequency of alcohol use: None Drug Abuse: None - \\ Lives with: Alone Family History: Reviewed & Not Pertinent Patient has suicidal ideation: No Patient has homicidal ideation: No - Past Medical History Cardiac Medical History: Reports: None Pulmonary Medical History: Reports: None EENT Medical History: Reports: None Neurological Medical History: Reports: None Endocrine Medical History: Reports: None Renal/ Medical History: Reports: None Malignancy Medical History: Reports: None GI Medical History: Reports: None Musculoskeletal Medical History: Reports None Skin Medical History: Reports None Psychiatric Medical History: Reports: Hx Bipolar Disorder, Hx Depression, Hx Schizophrenia Traumatic Medical History: Reports: None Infectious Medical History: Reports: None Past Surgical History: Reports: Hx Section - Immunizations Hx Diphtheria, Pertussis, Tetanus Vaccination: Yes Review of Systems - Review of Systems Constitutional: No symptoms reported EENT: No symptoms reported Cardiovascular: No symptoms reported Respiratory: No symptoms reported Gastrointestinal: No symptoms reported Genitourinary: No symptoms reported Female Genitourinary: No symptoms reported Musculoskeletal: No symptoms reported Skin: No symptoms reported, Other - 3 little spots on her left arm she states her insect bite and she is sure there is a spider bites because she saw spiders Hematologic/Lymphatic: No symptoms reported Neurological/Psychological: No symptoms reported -: Yes All other systems reviewed and negative Physical Exam - Vital signs Vitals: Temp Pulse Resp BP Pulse Ox 98.3 F 117 H 20 133/89 H 96 05/06/19 13:31 05/06/19 13:31 05/06/19 13:31 05/06/19 13:31 05/06/19 13:31 Interpretation: Normal - General General appearance: Appears well, Alert - HEENT Head: Normocephalic, Atraumatic Eyes: Normal Pupils: PERRL - Respiratory Respiratory status: No respiratory distress Chest status: Nontender Breath sounds: Normal Chest palpation: Normal - Cardiovascular Rhythm: Regular Heart sounds: Normal auscultation Murmur: No - Abdominal Inspection: Normal Distension: No distension Bowel sounds: Normal Tenderness: Nontender Organomegaly: No organomegaly - Back Back: Normal, Nontender - Extremities General upper extremity: Nontender, Normal color, Normal ROM, Normal temperature General lower extremity: Normal inspection, Nontender, Normal color, Normal ROM, Normal temperature, Normal weight bearing. No: Jt's sign Forearm: Tender - 3 little spots on her left forearm - Neurological Neuro grossly intact: Yes Cognition: Normal Orientation: AAOx4 [place] Coma Scale Eye Opening: Spontaneous [place] Coma Scale Verbal: Oriented [place]str[place] Coma Scale Motor: Obeys Commands [place] Coma Scale Total: 15 Speech: Normal Motor strength normal: LUE, RUE, LLE, RLE Sensory: Normal - Psychological Associated symptoms: Normal affect, Normal mood - Skin Skin Temperature: Warm Skin Moisture: Dry Skin Color: Normal Course - Vital Signs Vital signs: Temp Pulse Resp BP Pulse Ox 98.3 F 100 20 133/89 H 96 05/06/19 13:31 05/06/19 14:40 05/06/19 14:40 05/06/19 13:31 05/06/19 13:31 Discharge - Discharge Clinical Impression: Insect bite Qualifiers: Encounter type: initial encounter Site of insect bite: forearm Laterality: left Qualified Code(s): S50.862A - Insect bite (nonvenomous) of left forearm, initial encounter Condition: Stable Disposition: HOME, SELF-CARE Additional Instructions: Insect Bites You have been bitten by an insect. These bites can cause two types of s welling: an initial swelling due to insect saliva or injected poison, and a late reaction due to your body's allergic reaction. This initial local reaction may be uncomfortable but is not dangerous. Often there's an itchy "hive" at the bite location. This is treated with antihistamines, cold compresses, and resting the affected body part. The later reaction often develops about the second day. The entire area becomes very swollen, red, itchy, and tender. This is an allergic reaction. Your body is attacking the leftover insect saliva or venom. This type of allergy is unpleasant, but not dangerous. We treat this swelling with cortisone-type medicine. Sometimes we use antibiotics if we're worried about infection. Antihistamines help with the itch. If you develop a fever, chills, a red streak, or swollen glands in the area of the bite, infection may be starting. Return at once. Diphenhydramine The use of diphenhydramine (Benadryl) has been recommended to control allergic symptoms. The 25 mg strength is available over- the-counter, as well as the elixir. This antihistamine is used for many symptoms. It's useful for itching, watering eyes and nose, allergic swelling, hives, and insect stings. The medication can be repeated four times daily. Age Elixir (12.5 mg/tsp) 25 mg pill 1 yr 1/4 tsp 2-3 yr 1/2 tsp 4-8 yr 1 tsp 9-14 yr 2 tsp one tab adult 1-2 tabs Antihistamines may cause drowsiness, especially with the first dose. Do not operate machinery or drive while under the effects of the medication. Do not combine the medication with alcohol, or with any other medication without talking to your doctor. Acetaminophen Acetaminophen may be taken for pain relief or fever control. It's much safer than aspirin, offering a wider range of "safe" dosages. It is safe during . Some brand names are Tylenol, Panadol, Datril, Anacin 3, Tempra, and Liquiprin. Acetaminophen can be repeated every four hours. The following are maximum recommended dosages: WEIGHT Dose Drops Elixir Chewable(80mg) (LBS.) drprs=droppers tsp=teaspoon 6 40 mg .4 ml (1/2) 6-11 80 mg .8 ml (full) 1/2 tsp 1 tab 12-16 120 mg 1 1/2 drprs 3/4 tsp 1 1/2 tabs 17-23 160 mg 2 drprs 1 tsp 2 tabs 24-30 240 mg 3 drprs 1 1/2 tsp 3 tabs 30-35 320 mg 2 tsp 4 tabs 36-41 360 mg 2 1/4 tsp 4 1/2 tabs 42-47 400 mg 2 1/2 tsp 5 tabs 48-53 480 mg 3 tsp 6 tabs 54-59 520 mg 3 1/4 tsp 6 1/2 tabs 60-64 560 mg 3 1/2 tsp 7 tabs 65-70 600 mg 3 3/4 tsp 7 1/2 tabs 71-76 640 mg 4 tsp 8 tabs 77-82 720 mg 4 1/2 tsp 9 tabs 83-88 800 mg 5 tsp 10 tabs >89 pounds or adults 650 mg to 900 mg Acetaminophen can be repeated every four hours. Maximum daily dose not to exceed 4000 mg. These maximum recommended dosages are slightly higher than the dosages written on the product container, but these dosages are very safe and well below the toxic dosage for acetaminophen. FOLLOW-UP CARE: If you have been referred to a physician for follow-up care, call the physicians office for an appointment as you were instructed or within the next two days. If you experience worsening or a significant change in your symptoms, notify the physician immediately or return to the Emergency Department at any time for re-evaluation. Forms: Smoking Cessation Education Referrals: ANTONIO AMBROCIO MD [Primary Care Provider] - Follow up in 3-5 days
== END 2019-05-06 14:40 | disposition home or self-care (01) ==
LOC: ER 13:20
DX: S50.862A Insect bite (nonvenomous) of left forearm, initial encounter (principal); W57.XXXA Bitten or stung by nonvenomous insect and other nonvenomous arthropods, initial encounter; F17.200 Nicotine dependence, unspecified, uncomplicated; Z88.6 Allergy status to analgesic agent; Z91.013 Allergy to seafood
CPT/HCPCS: 99281

== ENCOUNTER 2019-11-03 10:35 | Emergency (ER) | payer MEDICARE, MEDICAID ==
[2019-11-03] MEDS ORDERED: ONDANSETRON HCL INJ/PF 4 MG/2 ML SDV IV ONE (11:24)
[2019-11-03] MEDS ORDERED: NORMAL SALINE 1000 ML 1,000 ML IV ONE (11:24)
[2019-11-03 11:33] LABS: ABSOLUTE BASOPHILS # (AUTO) 0.1 10^3/uL (0.0-0.2); ABSOLUTE EOSINOPHILS # (AUTO) 0.4 10^3/uL (0.0-0.6); ABSOLUTE LYMPHOCYTES (AUTO) 1.3 10^3/uL (0.5-4.7); ABSOLUTE MONOCYTES (AUTO) 0.7 10^3/uL (0.1-1.4); ABSOLUTE NEUT (AUTO) 5.5 10^3/uL (1.7-8.2); BASOPHILS % (AUTO) 0.7 % (0-2); EOSINOPHILS % (AUTO) 4.7 % (0-6); HEMATOCRIT 45.6 % (36.0-47.0); HEMOGLOBIN 15.3 g/dL (12.0-15.5); MEAN CORPUSCULAR HEMOGLOBIN 30.1 pg (27.0-33.4); MEAN CORPUSCULAR HGB CONC 33.5 g/dL (32.0-36.0); MEAN CORPUSCULAR VOLUME 90 fl (80-97); PLATELET COUNT 412 10^3/uL (150-450); RED BLOOD COUNT 5.08 10^6/uL (3.72-5.28); RED CELL DISTRIBUTION WIDTH 12.8 % (11.5-14.0); SEGMENTED NEUTROPHILS % (AUTO) 69.6 % (42-78); TOTAL CELLS COUNTED % (AUTO) 100 %
[2019-11-03 11:40] LABS: APPEARANCE,URINE SLIGHTLY-CLOUDY; BILIRUBIN,URINE NEGATIVE (NEGATIVE); COLOR,URINE RED; GLUCOSE, URINE NEGATIVE (NEGATIVE); KETONES,URINE 20 mg/dL (NEGATIVE); LEUKOCYTE ESTERASE,URINE MODERATE (NEGATIVE); NITRITE,URINE NEGATIVE (NEGATIVE); PROTEIN,URINE 100 mg/dL (NEGATIVE); URINE SPECIFIC GRAVITY 1.024; UROBILINOGEN,URINE NEGATIVE mg/dL (<2.0)
[2019-11-03 11:42] LABS: ALBUMIN 4.6 g/dL (3.5-5.0); ALKALINE PHOSPHATASE 83 U/L (38-126); ANION GAP 8 (5-19); ASPARTATE AMINO TRANSFERASE 22 U/L (14-36); BILIRUBIN,DIRECT 0.1 mg/dL (0.0-0.4); BILIRUBIN,TOTAL 0.8 mg/dL (0.2-1.3); BLOOD UREA NITROGEN 17 mg/dL (7-20); CALCIUM 9.6 mg/dL (8.4-10.2); CARBON DIOXIDE 29 mmol/L (22-30); CHLORIDE 103 mmol/L (98-107); GLUCOSE 112 mg/dL (75-110); POTASSIUM 4.3 mmol/L (3.6-5.0); TOTAL PROTEIN 8.3 g/dL (6.3-8.2)
[2019-11-03 11:49] LABS: URINE AMPHETAMINES SCREEN NEGATIVE; URINE BARBITURATES SCREEN NEGATIVE; URINE BENZODIAZEPINES SCREEN NEGATIVE; URINE MARIJUANA (THC) SCREEN NEGATIVE; URINE METHADONE SCREEN NEGATIVE; URINE PHENCYCLIDINE SCREEN NEGATIVE
[2019-11-03 11:54] LABS: URINE COCAINE SCREEN UNCONFIRMED POSITIVE
--- NOTE | 2019-11-03 15:06 | ER Document Report ---
Entered by SONDRA HICKMAN SCRIBE 11/03/19 1218 Acting as scribe for:CHATO MASON MD ED General - General Chief Complaint: Nausea/Vomiting Stated Complaint: NAUSEA/VOMITING/CONSTIPATION Time Seen by Provider: 11/03/19 11:14 Primary Care Provider: ANTONIO AMBROCIO MD [Primary Care Provider] - Follow up as needed Information source: Patient Notes: This 44 year old female patient presents to the emergency department today with complaints of nausea and vomiting. Patient states she has felt sick for x1 week with these symptoms and states she was constipated, but it has been relieved with a bowel movement today. Patient states she is currently on her menstrual period. TRAVEL OUTSIDE OF THE [place] IN LAST 30 DAYS: No - Related Data Allergies/Adverse Reactions: acetaminophen [From Tylenol] Allergy (Severe, Verified 11/03/19 11:25) sick,sick,sick per patient codeine [Codeine] Allergy (Unknown, Verified 11/03/19 11:25) pseudoephedrine [Pseudoephedrine] Allergy (Unknown, Verified 11/03/19 11:25) shrimp Allergy (Verified 11/03/19 11:25) VOMITING hotdogs Allergy (Uncoded 11/03/19 11:25) Past Medical History - General Information source: Patient - Social History Smoking Status: Current Every Day Smoker Cigarette use (# per day): Yes Family History: Reviewed & Not Pertinent Psychiatric Medical History: Reports: Hx Bipolar Disorder, Hx Depression, Hx Schizophrenia Past Surgical History: Reports: Hx Section - Immunizations Hx Diphtheria, Pertussis, Tetanus Vaccination: Yes Review of Systems - Review of Systems Constitutional: No symptoms reported EENT: No symptoms reported Cardiovascular: No symptoms reported Respiratory: No symptoms reported Gastrointestinal: See HPI, Nausea, Vomiting, Last bowel movement - today. denies: Constipation Genitourinary: No symptoms reported Female Genitourinary: See HPI, Last menstrual period Musculoskeletal: No symptoms reported Skin: No symptoms reported Hematologic/Lymphatic: No symptoms reported Neurological/Psychological: No symptoms reported -: Yes All other systems reviewed and negative Physical Exam - Vital signs Vitals: Temp Pulse Resp BP Pulse Ox 98.1 F 75 20 149/95 H 99 11/03/19 10:46 11/03/19 10:46 11/03/19 10:46 11/03/19 10:46 11/03/19 10:46 - General General appearance: Appears well, Alert - HEENT Head: Normocephalic, Atraumatic Eyes: Normal Pupils: PERRL - Respiratory Respiratory status: No respiratory distress Chest status: Nontender Breath sounds: Normal Chest palpation: Normal - Cardiovascular Rhythm: Regular Heart sounds: Normal auscultation, S1 appreciated, S2 appreciated Murmur: No - Abdominal Inspection: Obese, Other - Soft Distension: No distension Bowel sounds: Normal Tenderness: Nontender - Extremities General upper extremity: Normal inspection. No: Edema General lower extremity: Normal inspection. No: Edema - Neurological Neuro grossly intact: Yes Cognition: Normal Orientation: AAOx4 Speech: Normal - Psychological Associated symptoms: Tearful Notes: Inappropriate responses to questions - Skin Skin Temperature: Warm Skin Moisture: Dry Skin Color: Normal Course - Re-evaluation Re-evalutation: 11/03/19 14:58 Patient resting comfortably and more cooperative at this time. Patient states she still feels somewhat weak. Nonetheless as patient is ambulatory in the department walk to the bathroom and back without showing any signs of ataxia weakness or distress. Patient did receive IV fluids 1 L normal saline and also Zofran for nausea and vomiting. Patient complained of constipation in which she had a bowel movement while in the department today inasmuch as patient has symptoms of nausea and vomiting abdominal cramping pain due to constipation patient does have some symptoms of COVID-19 virus therefore patient is tested for COVID-19 prior to discharge. Patient is explained to continue quarantine and and self-monitoring regarding distance factors and wearing mass. - Vital Signs Vital signs: Temp Pulse Resp BP Pulse Ox 98.1 F 75 20 149/95 H 99 11/03/19 10:46 11/03/19 10:46 11/03/19 10:46 11/03/19 10:46 11/03/19 10:46 11/03/19 15:02 Vital signs stable. - Laboratory Result Diagrams: 11/03/19 11:07 11/03/19 11:07 Laboratory results interpreted by me: 11/03/19 11/03/19 11:07 11:07 Glucose 112 H Total Protein 8.3 H Urine Protein 100 H Urine Ketones 20 H Urine Blood LARGE H Ur Leukocyte Esterase MODERATE H 11/03/19 15:03 Patient's urine is contaminated as patient is on her menstrual cycle today. Discharge - Discharge Clinical Impression: Suspected COVID-19 virus infection, Viral syndrome, Nausea and vomiting Condition: Stable Disposition: HOME, SELF-CARE Instructions: Antinausea Medication ([facility]), Viral Syndrome ([facility]), COVID-19 Guidance for Persons Under Investigation Prescriptions: Ondansetron [Zofran Odt 4 mg Tablet] 1 - 2 tab PO Q4H PRN #15 tab.rapdis PRN Reason: For Nausea/Vomiting Referrals: ANTONIO AMBROCIO MD [Primary Care Provider] - Follow up as needed I personally performed the services described in the documentation, reviewed and edited the documentation which was dictated to the scribe in my presence, and it accurately records my words and actions.
[2019-11-03 15:26] VITALS: BP 143/87
== END 2019-11-03 15:21 | disposition home or self-care (01) ==
LOC: ER 10:35
DX: R11.2 Nausea with vomiting, unspecified (principal); K59.00 Constipation, unspecified; Z20.828 Contact with and (suspected) exposure to other viral communicable diseases; Z88.8 Allergy status to other drugs, medicaments and biological substances; F17.210 Nicotine dependence, cigarettes, uncomplicated
CPT/HCPCS: 99284; 96361; 96374; 36415; 84702; 85025; 80053; 81001; 80307; J2405; J7030

== ENCOUNTER 2020-03-20 13:08 | Emergency (ER) | payer MEDICARE, MEDICAID ==
[2020-03-20 13:21] VITALS: BP 109/68
[2020-03-20] MEDS ORDERED: KETOROLAC TROMETHAMINE 60 MG/2 ML SDV IM ONE (13:41)
--- NOTE | 2020-03-20 14:05 | ER Document Report ---
ED Fall - General Chief Complaint: Fall Stated Complaint: FALL Time Seen by Provider: 03/20/20 13:35 Primary Care Provider: ANTONIO AMBROCIO MD [Primary Care Provider] - Follow up as needed TRAVEL OUTSIDE OF THE [place] IN LAST 30 DAYS: No - HPI Notes: Patient is a 44-year-old female with no medical history who presents with right upper leg and hip pain that began a week ago. Patient states she stumbled and twisted her right hip 1 week ago but did not fall on the ground. She has had pain intermittently since but states this morning her right leg gave out and she been unable to bear weight since. She denies back pain, urinary and bowel incontinence and saddle numbness. She denies any other injury or symptoms. Patient is a current everyday smoker but denies alcohol and recreational drug use. - Related data Allergies/Adverse Reactions: acetaminophen [From Tylenol] Allergy (Severe, Verified 03/20/20 13:30) sick,sick,sick per patient codeine [Codeine] Allergy (Unknown, Verified 03/20/20 13:30) pseudoephedrine [Pseudoephedrine] Allergy (Unknown, Verified 03/20/20 13:30) shrimp Allergy (Verified 03/20/20 13:30) VOMITING hotdogs Allergy (Uncoded 03/20/20 13:30) Past Medical History - General Information source: Patient - Social History Smoking Status: Current Some Day Smoker Family History: Reviewed & Not Pertinent Renal/ Medical History: Denies: Hx Peritoneal Dialysis Psychiatric Medical History: Reports: Hx Bipolar Disorder, Hx Depression, Hx Schizophrenia Past Surgical History: Reports: Hx Section - Immunizations Hx Diphtheria, Pertussis, Tetanus Vaccination: Yes Review of Systems - Review of Systems Constitutional: No symptoms reported EENT: No symptoms reported Cardiovascular: No symptoms reported Respiratory: No symptoms reported Gastrointestinal: No symptoms reported Genitourinary: No symptoms reported Female Genitourinary: No symptoms reported Musculoskeletal: See HPI Skin: No symptoms reported Hematologic/Lymphatic: No symptoms reported Neurological/Psychological: No symptoms reported Physical Exam - Vital signs Vitals: Temp Pulse Resp BP Pulse Ox 98.3 F 72 16 109/68 96 03/20/20 13:20 03/20/20 13:20 03/20/20 13:20 03/20/20 13:20 03/20/20 13:20 - Notes Notes: PHYSICAL EXAMINATION: GENERAL: Well-appearing, well-nourished and in no acute distress. HEAD: Atraumatic, normocephalic. EYES: sclera anicteric, conjunctiva are normal. ENT: Moist mucous membranes. NECK: Normal range of motion LUNGS: Normal work of breathing HEART: 2+ radial pulses bilaterally EXTREMITIES: Limited ROM right hip secondary to pain. Sensation grossly intact. No bony tenderness of right hip or right femur. Full ROM of right knee and ankle. 2+ PT pulses. No pitting or edema. No cyanosis. Patient able to bear weight and ambulate with minimal difficulty. NEUROLOGICAL: No focal neurological deficits. Moves all extremities spontaneously and on command. PSYCH: Normal mood, normal affect. SKIN: Warm, Dry, normal turgor, no rashes or lesions noted. Course - Re-evaluation Re-evalutation: Patient is a 44-year-old female with no medical history who presents with right hip and thigh pain that began a week ago after twisting it. Patient states she was unable to bear weight starting today which caused her to come to the ED. Vital signs are stable and within normal limits. On exam, limited ROM right hip secondary to pain. No bony tenderness of right hip or right femur. Right hip and femur x-rays are negative with no signs of acute fracture. Based on history and physical, I have a very low suspicion of a concerning etiology of pain including DVT, cauda equina syndrome, or other musculoskeletal process. Patient given crutches here in the ED. Patient was seen ambulating with minimal difficulty and bearing full weight on her bilateral legs while walking back from the bathroom with crutches. Patient given 60 mg IM Toradol for pain. Patient advised to follow-up with orthopedics for further evaluation of her leg pain. Return precautions and follow-up instructions given. Patient will be discharged home. Patient understands and is in agreement with plan. - Vital Signs Vital signs: Temp Pulse Resp BP Pulse Ox 98.3 F 72 16 109/68 96 03/20/20 13:20 03/20/20 13:20 03/20/20 13:20 03/20/20 13:20 03/20/20 13:20 - Laboratory Results Critical Laboratory Results Reviewed: No Critical Results - Radiology Results Radiology Results Interpreted: Femur X-Ray 01/09/21 13:41 IMPRESSION: No acute fracture or dislocation of the pelvis or right femur. Hip/Pelvis X-Ray 03/20/20 13:41 IMPRESSION: No acute fracture or dislocation of the pelvis or right femur. Critical Radiology Results Reviewed: No Critical Results Discharge - Discharge Clinical Impression: Right leg pain, Right thigh pain Condition: Stable Disposition: HOME, SELF-CARE Additional Instructions: Leg Pain, Nonspecific We did not find an obvious cause for your leg pain. There's no sign of blood clot, infection, or other serious disease. Possible causes of vague leg pain include muscle or joint inflammation, disc disease in the lower back, pressure on the nerves in the back, or reduced blood flow through the arteries of the leg. Rest the leg. Pain can be eased with an antiinflammatory pain medicine such as ibuprofen. If the pain involves a small area, a heating pad might help. Call the doctor or return if the leg becomes swollen, weak, discolored, or increasingly painful, or if you develop any other significant change in your health. Referrals: ANTONIO AMBROCIO MD [Primary Care Provider] - Follow up as needed PETROS BLANKENSHIP MD [ACTIVE STAFF] - Follow up as needed
--- NOTE | 2020-03-20 14:15 | RADIOLOGY REPORT (SQ) ---
EXAM DESCRIPTION: FEMUR RIGHT; HIP RIGHT AP/LATERAL IMAGES COMPLETED DATE/TIME: 03/20/2020 1:01 pm REASON FOR STUDY: fall COMPARISON: None. NUMBER OF VIEWS: Four views TECHNIQUE: AP view of the pelvis and frog-leg view of the right hip. AP and lateral view of the rig ht femur LIMITATIONS: None. FINDINGS: MINERALIZATION: Normal. BONES: No fracture or dislocation. No worrisome bone lesions. Normal femoroacetabular alignment. T he pelvis is intact. SOFT TISSUES: Calcified pelvic phleboliths. OTHER: No other significant finding. IMPRESSION: No acute fracture or dislocation of the pelvis or right femur. COMMENT: Pelvic fractures are often occult on plain radiographs. If strong clinical suspicion for fracture, recommend CT or MR. TECHNICAL DOCUMENTATION: JOB ID: [id number] [employer]- All Rights Reserved Reading location - IP/workstation name: [email or web address]
--- NOTE | 2020-03-20 14:15 | RADIOLOGY REPORT (SQ) ---
EXAM DESCRIPTION: FEMUR RIGHT; HIP RIGHT AP/LATERAL IMAGES COMPLETED DATE/TIME: 03/20/2020 1:01 pm REASON FOR STUDY: fall COMPARISON: None. NUMBER OF VIEWS: Four views TECHNIQUE: AP view of the pelvis and frog-leg view of the right hip. AP and lateral view of the rig ht femur LIMITATIONS: None. FINDINGS: MINERALIZATION: Normal. BONES: No fracture or dislocation. No worrisome bone lesions. Normal femoroacetabular alignment. T he pelvis is intact. SOFT TISSUES: Calcified pelvic phleboliths. OTHER: No other significant finding. IMPRESSION: No acute fracture or dislocation of the pelvis or right femur. COMMENT: Pelvic fractures are often occult on plain radiographs. If strong clinical suspicion for fracture, recommend CT or MR. TECHNICAL DOCUMENTATION: JOB ID: [id number] [employer]- All Rights Reserved Reading location - IP/workstation name: [email or web address]
== END 2020-03-20 14:55 | disposition home or self-care (01) ==
LOC: ER 13:08
DX: M79.651 Pain in right thigh (principal); M25.551 Pain in right hip; Z88.6 Allergy status to analgesic agent; F17.200 Nicotine dependence, unspecified, uncomplicated
CPT/HCPCS: 99284; 96372; 73552; 73502; J1885